=== PATIENT | female | born 1980 | race Caucasian/White ===

== ENCOUNTER 2019-09-26 16:34 | Emergency (ER) | payer MEDICAID ==
[2019-09-26 16:43] VITALS: BP 145/84
--- NOTE | 2019-09-26 17:09 | ER Document Report ---
ED General - General Chief Complaint: Ear Pain Stated Complaint: EAR PAIN Notes: Patient is a 38-year-old white female with a past medical history of diabetes who presents to the emergency department with a chief complaint of left ear pain. She states that she has had problems with her ears in the past. Has had to see ENT. She states she thinks she has another ear infection. She also admits that she has some soreness in the back of the top of the roof of the mo ut and back of the throat with any eating and drinking as well as white patches on the tongue. She states she has not noticed any other patches in the mouth but she has not been looking. She is edentulous by history. She does smoke. She supposed to use oral inhaled medications but reports that she does not. She denies any difficulty breathing, tongue or throat swelling. No drainage from the ears or hearing loss. No fever or headache. - Related Data Allergies/Adverse Reactions: clindamycin Allergy (Verified 09/26/19 16:56) doxycycline Allergy (Verified 09/26/19 16:56) Penicillins Allergy (Verified 09/26/19 16:56) Home Medications: glipizide, pioglitazone, phenergan Past Medical History - Social History Smoking Status: Current Every Day Smoker Frequency of alcohol use: None Drug Abuse: None Family History: Reviewed & Not Pertinent Patient has suicidal ideation: No Patient has homicidal ideation: No Endocrine Medical History: Reports: Hx Diabetes Mellitus Type 2 Past Surgical History: Reports: Hx Tonsillectomy, Hx Tubal Ligation Review of Systems - Review of Systems EENT: Ear pain, Throat pain, Mouth pain -: Yes All other systems reviewed and negative Physical Exam - Vital signs Vitals: Temp Pulse Resp BP Pulse Ox 98.6 F 108 H 16 145/84 H 97 09/26/19 16:38 09/26/19 16:38 09/26/19 16:38 09/26/19 16:38 09/26/19 16:38 - General General appearance: Appears well, Alert - HEENT Head: Normocephalic, Atraumatic Eyes: Normal Conjunctiva: Normal Extraocular movements intact: Yes Ears: Normal External canal: Normal Tympanic membrane: Normal Nasal: Normal Mouth/Lips: Normal Mucous membranes: Moist Pharynx: Other - White plaques to the soft palate, posterior pharynx and tongue consistent with oral pharyngeal candidiasis Neck: Normal - Respiratory Respiratory status: No respiratory distress Chest status: Nontender Breath sounds: Normal Chest palpation: Normal - Cardiovascular Rhythm: Regular Heart sounds: Normal auscultation - Neurological Neuro grossly intact: Yes Cognition: Normal Orientation: AAOx4 [place] Coma Scale Eye Opening: Spontaneous [place] Coma Scale Verbal: Oriented [place] Coma Scale Motor: Obeys Commands Jefry Coma Scale Total: 15 Speech: Normal - Psychological Associated symptoms: Normal affect, Normal mood - Skin Skin Temperature: Warm Skin Moisture: Dry Skin Color: Normal Course - Re-evaluation Re-evalutation: 09/26/19 17:09 Suspect referred pain to the left ear given the thrush. Should be treated with nystatin. Counseled her regarding the importance of outpatient follow-up and advised that she return here or any ER immediately with any new, persistent or worsening symptoms. She verbalized understood and agreed. - Vital Signs Vital signs: Temp Pulse Resp BP Pulse Ox 98.6 F 108 H 16 145/84 H 97 09/26/19 16:38 09/26/19 16:38 09/26/19 16:38 09/26/19 16:38 09/26/19 16:38 Discharge - Discharge Clinical Impression: Thrush Condition: Stable Disposition: HOME, SELF-CARE Instructions: Oral Thrush ([facility]) Additional Instructions: Follow-up with your regular doctor in 2 to 3 days for reevaluation. Return here or any ER immediately with any new, persistent or worsening symptoms. Prescriptions: Nystatin [Mycostatin 500,000 Unit/5 ml Susp Udcup] 500,000 unit PO QID #20 [facility] [place]
== END 2019-09-26 17:21 | disposition home or self-care (01) ==
LOC: ER 16:34
DX: B37.9 Candidiasis, unspecified (principal); H92.02 Otalgia, left ear; R07.0 Pain in throat; E11.9 Type 2 diabetes mellitus without complications; F17.200 Nicotine dependence, unspecified, uncomplicated; Z79.84 Long term (current) use of oral hypoglycemic drugs; Z79.899 Other long term (current) drug therapy; Z88.1 Allergy status to other antibiotic agents; Z88.0 Allergy status to penicillin
CPT/HCPCS: 99282

== ENCOUNTER 2019-11-19 07:32 | Inpatient (IN) | payer MEDICAID ==
[2019-11-19] MEDS ORDERED: IPRATROPIUM/ALBUTEROL 0.5-2.5 MG/3 ML AMPUL NEB ONE (08:17)
[2019-11-19] MEDS ORDERED: NORMAL SALINE 1000 ML 1,000 ML IV ONE ×2 (08:17→10:37)
[2019-11-19 08:45] LABS: HEMATOCRIT 33.5 % (36.0-47.0); HEMOGLOBIN 11.8 g/dL (12.0-15.5); MEAN CORPUSCULAR HEMOGLOBIN 29.5 pg (27.0-33.4); MEAN CORPUSCULAR HGB CONC 35.3 g/dL (32.0-36.0); MEAN CORPUSCULAR VOLUME 83 fl (80-97); RED BLOOD COUNT 4.02 10^6/uL (3.72-5.28); RED CELL DISTRIBUTION WIDTH 14.4 % (11.5-14.0)
[2019-11-19 08:52] LABS: ALBUMIN 3.3 g/dL (3.5-5.0); ALKALINE PHOSPHATASE 155 U/L (38-126); ANION GAP 10 (5-19); ASPARTATE AMINO TRANSFERASE 153 U/L (14-36); BILIRUBIN,DIRECT 0.7 mg/dL (0.0-0.4); BILIRUBIN,TOTAL 1.5 mg/dL (0.2-1.3); BLOOD UREA NITROGEN 11 mg/dL (7-20); CALCIUM 7.9 mg/dL (8.4-10.2); CARBON DIOXIDE 30 mmol/L (22-30); CHLORIDE 85 mmol/L (98-107); CREATINE KINASE 102 U/L (30-135); GLUCOSE 160 mg/dL (75-110); TOTAL PROTEIN 6.9 g/dL (6.3-8.2)
[2019-11-19 08:53] LABS: POTASSIUM 3.1 mmol/L (3.6-5.0)
[2019-11-19] MEDS ORDERED: RINGERS SOLUTION,LACTATED 1,000 ML IV ONE (09:02)
--- NOTE | 2019-11-19 09:06 | ER Document Report ---
Entered by JOHN RHOADES SCRIBE 11/19/19 0800 Acting as scribe for:AUSTIN MORALES MD ED General - General Chief Complaint: Vomiting Stated Complaint: NAUSEA/VOMITING Primary Care Provider: ROSENDO WEINER PA-C [Primary Care Provider] - Follow up as needed Mode of Arrival: Ambulatory Information source: Patient Notes: This 38-year-old female patient presents to the emergency department today with complaints of vomiting for one week with associated shortness of breath for the last few days. Patient was seen here on 09/25 and was diagnosed with thrush which she states has intermittently been an issue since that visit. Patient has seen Rosendo Weiner for the thrush but has not yet seen her for any of her new symptoms. Patient reports feeling short of breath for the last few days without a cough. Patient reports substernal chest discomfort which she attributes to her shortness of breath. Patient states that she has had intermittent fevers. - Related Data Allergies/Adverse Reactions: clindamycin Allergy (Verified 11/19/19 08:58) doxycycline Allergy (Verified 11/19/19 08:58) Penicillins Allergy (Verified 11/19/19 08:58) Past Medical History - General Information source: Patient - Social History Smoking Status: Current Every Day Smoker Cigarette use (# per day): Yes - 1 ppd Frequency of alcohol use: Rare Drug Abuse: None Occupation: unemployed Family History: Reviewed & Not Pertinent Patient has homicidal ideation: No Endocrine Medical History: Reports: Hx Diabetes Mellitus Type 2 Past Surgical History: Reports: Hx Tonsillectomy, Hx Tubal Ligation Review of Systems - Review of Systems Constitutional: See HPI, Fever EENT: No symptoms reported Cardiovascular: See HPI, Chest pain Respiratory: See HPI, Short of breath. denies: Cough Gastrointestinal: See HPI, Vomiting. denies: Diarrhea Genitourinary: No symptoms reported Female Genitourinary: No symptoms reported Musculoskeletal: No symptoms reported Skin: No symptoms reported Hematologic/Lymphatic: No symptoms reported Neurological/Psychological: No symptoms reported -: Yes All other systems reviewed and negative Physical Exam - Vital signs Vitals: Temp 99.8 F 11/19/19 07:33 - Notes Notes: Physical Exam: General: Alert, appears significantly older than stated age. HEENT: Normocephalic. Atraumatic. PERRL. Extraocular movements intact. O ropharynx clear. Neck: Supple. Non-tender. Respiratory: Mild respiratory distress. Diffuse wheezing and rhonchi bilaterally. Cardiovascular: Tachycardic, regular rhythm. Abdominal: Normal Inspection. Non-tender. No distension. Normal Bowel Sounds. Back: No gross abnormalities. Extremities: Moves all four extremities. Upper extremities: Normal inspection. Normal ROM. Lower extremities: Normal inspection. No edema. Normal ROM. Neurological: Normal cognition. AAOx4. Normal speech. Psychological: Normal affect. Normal Mood. Skin: Warm. Dry. Normal color. Course - Re-evaluation Re-evalutation: 11/19/19 10:41 Patient has neutropenic fever. CBC suggests this may be a viral illness affecting her bone marrow due to the low platelet count. The patient is allergic to clindamycin, doxycycline, and penicillins. She states penicillin causes her to develop a rash. She states she has taken Keflex in the past for ear infections and has had no problems with Keflex. She does not knows she is ever had Rocephin. - Vital Signs Vital signs: Temp Pulse Resp BP Pulse Ox 101.6 F H 162 H 22 H 94/69 L 96 11/19/19 08:44 11/19/19 07:42 11/19/19 10:15 11/19/19 10:15 11/19/19 10:15 - Laboratory Result Diagrams: 11/19/19 08:08 11/19/19 08:08 Laboratory results interpreted by me: 11/19/19 11/19/19 11/19/19 08:08 08:08 09:35 WBC 1.5 L* Hgb 11.8 L Hct 33.5 L RDW 14.4 H Plt Count 51 L Band Neutrophils % 8 H Lymphocytes % (Manual) 6 L Monocytes % (Manual) 18 H Abs Neuts (Manual) 1.1 L Abs Lymphs (Manual) 0.1 L Sodium 124.7 L Potassium 3.1 L Chloride 85 L Creatinine 0.44 L Glucose 160 H Calcium 7.9 L Total Bilirubin 1.5 H Direct Bilirubin 0.7 H AST 153 H Alkaline Phosphatase 155 H Albumin 3.3 L Urine Protein 100 H Urine Glucose (UA) 50 H Urine Ketones 25 H Urine Blood SMALL H Urine Bilirubin MODERATE H Urine Urobilinogen 12.0 H Ur Leukocyte Esterase TRACE H - Diagnostic Test Radiology reviewed: Image reviewed, Reports reviewed - Chest x-ray does not show acute cardiopulmonary process - EKG Interpretation by Me EKG shows normal: Sinus rhythm, [place], Intervals, QRS Complexes, ST-T Waves Rate: Tachycardia - 139 - Consults Dr. Schrader Time consulted: 10:55 Consulted provider: will come to ER Critical Care Note - Critical Care Note Total time excluding time spent on procedures (mins): 45 Discharge - Discharge Clinical Impression: Febrile neutropenia, Hyponatremia, Hypokalemia, Hypocalcemia, Bronchitis with bronchospasm, Thrombocytopenia, Tobacco abuse Nausea and vomiting Qualifiers: Vomiting type: unspecified Vomiting Intractability: non-intractable Qualified Code(s): R11.2 - Nausea with vomiting, unspecified Fever Qualifiers: Fever type: unspecified Qualified Code(s): R50.9 - Fever, unspecified Condition: Fair Disposition: ADMITTED INPATIENT Admitting Provider: Raciel (Hospitalist) Unit Admitted: [facility]U Referrals: ROSENDO WEINER PA-C [Primary Care Provider] - Follow up as needed I personally performed the services described in the documentation, reviewed and edited the documentation which was dictated to the scribe in my presence, and it accurately records my words and actions.
[2019-11-19 09:09] LABS: PLATELET COUNT 51 10^3/uL (150-450); WHITE BLOOD COUNT 1.5 10^3/uL (4.0-10.5)
[2019-11-19 09:12] LABS: ABSOLUTE LYMPHOCYTES# (MANUAL) 0.1 10^3/uL (0.5-4.7); ABSOLUTE MONOCYTES # (MANUAL) 0.3 10^3/uL (0.1-1.4); BAND NEUTROPHILS % (MANUAL) 8 % (3-5); BASOPHILS % (MANUAL) 0 % (0-2); EOSINOPHILS % (MANUAL) 0 % (0-6); LYMPHOCYTES % (MANUAL) 6 % (13-45); MONOCYTES % (MANUAL) 18 % (3-13); SEGMENTED NEUTROPHILS % (MAN) 68 % (42-78); TOTAL CELLS COUNTED 50
[2019-11-19 09:13] LABS: ANISOCYTOSIS SLIGHT; OVALOCYTES SLIGHT; PLATELET COMMENT DECREASED
[2019-11-19] MEDS ORDERED: ONDANSETRON HCL INJ/PF 4 MG/2 ML SDV IV ONE (09:28)
--- NOTE | 2019-11-19 09:35 | RADIOLOGY REPORT (SQ) ---
EXAM DESCRIPTION: CHEST SINGLE VIEW IMAGES COMPLETED DATE/TIME: 11/19/2019 8:44 am REASON FOR STUDY: Fever, short of breath, nausea vomiting COMPARISON: None. EXAM PARAMETERS: NUMBER OF VIEWS: One view. TECHNIQUE: Single frontal radiographic view of the chest acquired. RADIATION DOSE: NA LIMITATIONS: None. FINDINGS: LUNGS AND PLEURA: No opacities, masses or pneumothorax. No pleural effusion. MEDIASTINUM AND HILAR STRUCTURES: No masses. Contour normal. HEART AND VASCULAR STRUCTURES: Heart normal in size. Normal vasculature. BONES: No acute findings. HARDWARE: None in the chest. OTHER: No other significant finding. IMPRESSION: NO ACUTE RADIOGRAPHIC FINDING IN THE CHEST. TECHNICAL DOCUMENTATION: JOB ID: [id number] 2010 [employer]- All Rights Reserved Reading location - IP/workstation name: [email or web address]
[2019-11-19] MEDS ORDERED: ACETAMINOPHEN 325 MG TABLET PO ONE (10:19)
[2019-11-19 10:32] LABS: APPEARANCE,URINE HAZY; COLOR,URINE DARK YELLOW; GLUCOSE, URINE 50 mg/dL (NEGATIVE)
[2019-11-19 10:33] LABS: KETONES,URINE 25 mg/dL (NEGATIVE); PROTEIN,URINE 100 mg/dL (NEGATIVE); URINE SPECIFIC GRAVITY 1.023
[2019-11-19 10:34] LABS: ADD MANUAL MICROSCOPIC YES; BACTERIA,URINE TRACE /HPF; BILIRUBIN,URINE MODERATE (NEGATIVE); LEUKOCYTE ESTERASE,URINE TRACE (NEGATIVE); NITRITE,URINE NEGATIVE (NEGATIVE)
[2019-11-19] MEDS ORDERED: POTASSI CL 20 MEQ/50 ML RIDER 20 MEQ/50 ML RTUPB IV ONE (10:37)
[2019-11-19] MEDS ORDERED: CEFEPIME 1 GM/D5W RTU 1 GM/50 ML RTUPB IV ONE (10:41)
[2019-11-19] MEDS ORDERED: NORMAL SALINE 1000 ML 1,000 ML IV PRN (14:00)
[2019-11-19] MEDS ORDERED: IPRATROPIUM/ALBUTEROL 0.5-2.5 MG/3 ML AMPUL NEB PRN (14:00)
[2019-11-19] MEDS ORDERED: VANCOMYCIN HCL INJ 1000 MG VIAL IV SCH (14:15)
[2019-11-19] MEDS ORDERED: DEXTROSE 40% GEL 15 GM TUBE PO PRN ×2 (14:17)
[2019-11-19] MEDS ORDERED: DEXTROSE 50%-WATER 25 GM/50 ML DISP.SYRIN IV PRN ×2 (14:17)
[2019-11-19] MEDS ORDERED: GLUCAGON,HUMAN RECOMB 1 MG INJ IM PRN (14:17)
--- NOTE | 2019-11-19 14:44 | PDOC H&P ---
History of Present Illness Admission Date/PCP: 11/19/19 11:09 ROSENDO BAJWA PA-C Patient complains of: Fatigue, loss of appetite, vomiting History of Present Illness: ARMIDA COLEMAN is a 38 year old female with history of bipolar disorder, diabetes mellitus type 2, asthma, oral thrush, who presents to the hospital with complaints of vomiting for the past several days as well as significant fatigue and some shortness of breath on occasion. Symptoms have persisted. She denies any significant chest pain or pain elsewhere. She did endorse previously feeling a little chest tightness. She has occasionally noted diaphoresis but was unaware that she was febrile. She denies any headaches, runny nose, dysuria, neck pain or stiffness. She has been initiated on treatment with nystatin for oral thrush recently states that she has had issue with thrush in the past. She denies any history of IV drug use, cirrhosis, HIV and denies being on any immunosuppressive medications. Past Medical History Pulmonary Medical History: Reports: Asthma Endocrine Medical History: Reports: Diabetes Mellitus Type 2 Psychiatric Medical History: Reports: Bipolar Disorder Past Surgical History Past Surgical History: Reports: Tonsillectomy, Tubal Ligation Social History Information Source: Patient Smoking Status: Current Every Day Smoker Frequency of Alcohol Use: Rare Hx Recreational Drug Use: No - She denies any history of drug use including IV drugs - Advance Directive Resuscitation Status: Full Code Family History Family History: Other - Patient states none Parental Family History Reviewed: Yes Children Family History Reviewed: Unknown Sibling(s) Family History Reviewed.: Unknown Medication/Allergy Home Medications: Glipizide [Glocotrol 5 Mg Tablet] 5 mg PO BID 11/19/19 Meclizine HCl [Motion Relief] 25 mg PO BIDP PRN 11/19/19 Nystatin [Mycostatin 145206 Unit/1 ml Susp 60 ml Btl] 3 ml PO QID 11/19/19 Omeprazole 40 mg PO DAILY 11/19/19 Pioglitazone HCl 45 mg PO DAILY 11/19/19 Allergies/Adverse Reactions: clindamycin Allergy (Verified 11/19/19 08:58) doxycycline Allergy (Verified 11/19/19 08:58) Penicillins Allergy (Verified 11/19/19 08:58) Review of Systems Constitutional: PRESENT: chills, fatigue Eyes: ABSENT: visual disturbances Nose, Mouth, and Throat: ABSENT: headache(s), sore throat Cardiovascular: ABSENT: edema Respiratory: PRESENT: cough, dyspnea Gastrointestinal: PRESENT: nausea, vomiting. ABSENT: abdominal pain, diarrhea Genitourinary: ABSENT: difficulty urinating, dysuria Musculoskeletal: ABSENT: back pain Integumentary: PRESENT: diaphoresis, lesions - Bottom sore Neurological: PRESENT: dizziness - Occasionally. ABSENT: confusion Psychiatric: PRESENT: other - Bipolar Endocrine: ABSENT: polyuria Physical Exam Vital Signs: Temp Pulse Resp BP Pulse Ox 99.4 F 162 H 26 H 104/66 94 11/19/19 11:35 11/19/19 07:42 11/19/19 13:01 11/19/19 13:01 11/19/19 13:01 Intake & Output 11/18/19 11/19/19 11/20/19 06:59 06:59 06:59 Intake Total 2100 Balance 2100 Weight 71.214 kg General appearance: PRESENT: no acute distress, cooperative Mouth exam: PRESENT: other - Oral thrush Neck exam: ABSENT: JVD Respiratory exam: PRESENT: clear to auscultation stas, unlabored. ABSENT: wheezes Cardiovascular exam: PRESENT: +S1, +S2, tachycardia. ABSENT: irregular rhythm GI/Abdominal exam: PRESENT: soft, tenderness - Mild generalized. ABSENT: firm, guarding, rebound, rigid Extremities exam: ABSENT: pedal edema Neurological exam: PRESENT: alert, awake, oriented to person, oriented to place, oriented to time, oriented to situation Psychiatric exam: PRESENT: unusual affect - Very slow and sluggish with her responses. ABSENT: agitated, anxious Focused psych exam: ABSENT: pressured speech Results Laboratory Results: 11/19/19 08:08 11/19/19 08:08 11/19/19 11/19/19 11/19/19 08:08 08:08 08:08 WBC 1.5 L* RBC 4.02 Hgb 11.8 L Hct 33.5 L MCV 83 MCH 29.5 MCHC 35.3 RDW 14.4 H Plt Count 51 L Seg Neutrophils % Not Reportable Sodium 124.7 L Potassium 3.1 L Chloride 85 L Carbon Dioxide 30 Anion Gap 10 BUN 11 Creatinine 0.44 L Est GFR ( Amer) > 60 Glucose 160 H Lactic Acid Calcium 7.9 L Magnesium 2.3 Total Bilirubin 1.5 H AST 153 H Alkaline Phosphatase 155 H Total Protein 6.9 Albumin 3.3 L Urine Color Urine Appearance Urine pH Ur Specific [place] Urine Protein Urine Glucose (UA) Urine Ketones Urine Blood Urine Nitrite Ur Leukocyte Esterase Ur Squamous Epith Cells 11/19/19 11/19/19 09:35 12:55 WBC RBC Hgb Hct MCV MCH MCHC RDW Plt Count Seg Neutrophils % Sodium Potassium Chloride Carbon Dioxide Anion Gap BUN Creatinine Est GFR ( Amer) Glucose Lactic Acid 0.7 Calcium Magnesium Total Bilirubin AST Alkaline Phosphatase Total Protein Albumin Urine Color DARK YELLOW Urine Appearance HAZY Urine pH 6.0 Ur Specific [place] 1.023 Urine Protein 100 H Urine Glucose (UA) 50 H Urine Ketones 25 H Urine Blood SMALL H Urine Nitrite NEGATIVE Ur Leukocyte Esterase TRACE H Ur Squamous Epith Cells FEW 11/19/19 11/19/19 08:08 08:08 Creatine Kinase 102 Troponin I < 0.012 Impressions: Chest X-Ray 11/19/19 08:18 IMPRESSION: NO ACUTE RADIOGRAPHIC FINDING IN THE CHEST. Assessment and Plan - Diagnosis (1) Sepsis Qualifiers: Sepsis type: sepsis due to unspecified organism Sepsis acute organ dysfunction status: without acute organ dysfunction Qualified Code(s): A41.9 - Sepsis, unspecified organism Is this a current diagnosis for this admission?: Yes Plan: Patient with fever, hyperbilirubinemia, thrombocytopenia, neutropenia, bandemia tachycardia. Evaluating possible etiologies of patient's current sepsis. Chest x-ray is negative and urinalysis is negative as well. She does appear to have a viral syndrome but COVID-19 test is negative. We will check HIV, hepatitis panel, blood cultures. Does have oral thrush. No evidence of meningismus. Received adequate fluid resuscitation Started on broad-spectrum antibiotics with vancomycin and cefepime while awaiting blood culture result. (2) Pancytopenia Is this a current diagnosis for this admission?: Yes Plan: Patient denies history of malignancy, HIV or cirrhosis. Patient looks significantly older than her age. We will check iron studies, vitamin B12, reticulocyte count, haptoglobin, LDH, folic acid, HIV, hepatitis viral panel Suspecting this may be due to viral disease causing bone marrow suppression We will consult oncology (3) Nausea and vomiting Qualifiers: Vomiting type: unspecified Vomiting Intractability: non-intractable Qualified Code(s): R11.2 - Nausea with vomiting, unspecified Is this a current diagnosis for this admission?: Yes Plan: Antiemetics, IV fluids (4) Oral thrush Is this a current diagnosis for this admission?: Yes Plan: We will start on Diflucan IV. (5) Hyponatremia Is this a current diagnosis for this admission?: Yes Plan: Check serum and urine osmolarity. Check urine sodium level. Patient looks very dehydrated and likely her hyponatremia secondary to hypovolemia/dehydration. Will give IV fluids and repeat BMP. (6) Hyperbilirubinemia Is this a current diagnosis for this admission?: Yes Plan: Check right upper quadrant ultrasound to evaluate hepatic contour. Monitor CMP. - Time Time Spent with patient: 35 or more minutes
[2019-11-19] MEDS ORDERED: VANCOMYCIN HCL 1,000 MG in DEXTROSE 5%-WATER 250 ML IV SCH (15:00)
[2019-11-19 15:52] LABS: ABSOLUTE RETICS # 0.046 10^6/uL (0.028-0.122); RETICULOCYTE COUNT (AUTO) 1.37 % (0.66-2.85)
[2019-11-19 15:59] LABS: PROTHROMBIN TIME 17.3 SEC (11.4-15.4)
[2019-11-19 16:00] LABS: PARTIAL THROMBOPLASTIN TIME 36.5 SEC (23.5-35.8)
[2019-11-19 16:22] LABS: BLOOD UREA NITROGEN 9 mg/dL (7-20); CALCIUM 7.1 mg/dL (8.4-10.2); CARBON DIOXIDE 32 mmol/L (22-30); CHLORIDE 95 mmol/L (98-107); GLUCOSE 113 mg/dL (75-110); IRON(TIBC) 57.1 ug/dL (37-170)
[2019-11-19] MEDS: INSULIN LISPRO 100 UNIT/ML 3 ML VIAL SUBCUT SCH ×2 (16:24→21:46)
[2019-11-19 16:25] LABS: ANION GAP 3 (5-19)
[2019-11-19 16:26] LABS: POTASSIUM 2.7 mmol/L (3.6-5.0)
[2019-11-19 16:27] LABS: FREE T3 4.13 pg/mL (2.77-5.27); FREE T4 (FREE THYROXINE) 1.77 ng/dL (0.78-2.19)
[2019-11-19 16:41] LABS: THYROID STIMULATING HORMONE 0.97 uIU/mL (0.47-4.68)
[2019-11-19] MEDS: FLUCONAZOLE 200 MG/NS RTU 200 MG/100 ML RTUPB IV SCH (16:41)
[2019-11-19] MEDS ORDERED: POTASSIUM CHLORIDE 10 MEQ TABLET.ER PO ONE (16:55)
[2019-11-19 17:15] LABS: FOLATE 4.55 ng/mL (>2.76)
[2019-11-19] MEDS: PROMETHAZINE HCL INJ 25 MG/1 ML VIAL IV PRN (17:48)
[2019-11-19] MEDS: POTASSI CL 20 MEQ/50 ML RIDER 20 MEQ/50 ML RTUPB IV SCH ×2 (19:07→19:54)
[2019-11-19] MEDS: VANCOMYCIN HCL 1,000 MG in DEXTROSE 5%-WATER 250 ML IV SCH (19:07)
--- NOTE | 2019-11-19 20:51 | EKG REPORT ---
SEVERITY:- OTHERWISE NORMAL ECG - SINUS TACHYCARDIA : Confirmed by: Minal Ramos MD 19-Nov-2019 20:50:28
[2019-11-19] MEDS ORDERED: CEFEPIME 2 GM/D5W RTU 2 GM/50 ML RTUPB IV SCH (22:00)
--- NOTE | 2019-11-19 23:07 | RADIOLOGY REPORT (SQ) ---
EXAM DESCRIPTION: Right upper quadrant abdominal ultrasound CLINICAL HISTORY: 38 years Female; elevated bili, transaminitis. ? Cirrhosis TECHNIQUE: Abdominal ultrasound was performed. COMPARISON: None. FINDINGS: Pancreas: The head and body the pancreas are unremarkable. The tail was not well seen secondary to overlying bowel gas. Liver: The liver measures 18.5 cm in length. Portal vein is patent with hepatopedal flow. Overall the liver is not well seen.. Gallbladder: The gallbladder is small and contains two stones in the fundus. The largest measures 17 mm. The wall is normal measuring 2.3 mm. No pericholecystic fluid. Common bile duct: 5.3 mm. Right kidney: The kidney measures 12.2 x 4.3 x 4.6 cm. Echogenicity is normal.. No hydronephrosis. Aorta:Visualized portions are within normal limits. IVC: Visualized portions are within normal limits. Ascites: No free fluid. IMPRESSION: 1. Cholelithiasis. 2. The liver is enlarged and difficult to image suggesting fatty infiltration. Portal vein is patent with hepatopedal flow. No ultrasound evidence of cirrhosis.
[2019-11-20] MEDS ORDERED: CEFEPIME 2 GM/D5W RTU 2 GM/50 ML RTUPB IV ONE (00:03)
[2019-11-20] MEDS: ACETAMINOPHEN 325 MG TABLET PO PRN ×2 (00:18→18:16)
[2019-11-20] MEDS: POTASSI CL 20 MEQ/50 ML RIDER 20 MEQ/50 ML RTUPB IV SCH (00:49)
[2019-11-20] MEDS: PROMETHAZINE HCL INJ 25 MG/1 ML VIAL IV PRN ×4 (00:59→18:16)
[2019-11-20] MEDS: VANCOMYCIN HCL 1,000 MG in DEXTROSE 5%-WATER 250 ML IV SCH ×3 (03:09→18:06)
[2019-11-20 06:57] LABS: HEMATOCRIT 30.7 % (36.0-47.0); HEMOGLOBIN 10.6 g/dL (12.0-15.5); MEAN CORPUSCULAR HEMOGLOBIN 29.3 pg (27.0-33.4); MEAN CORPUSCULAR HGB CONC 34.6 g/dL (32.0-36.0); MEAN CORPUSCULAR VOLUME 85 fl (80-97); RED BLOOD COUNT 3.63 10^6/uL (3.72-5.28); RED CELL DISTRIBUTION WIDTH 14.3 % (11.5-14.0)
[2019-11-20 06:59] LABS: PLATELET COUNT 34 10^3/uL (150-450)
[2019-11-20 07:00] LABS: WHITE BLOOD COUNT 1.4 10^3/uL (4.0-10.5)
[2019-11-20 07:03] LABS: ALBUMIN 2.7 g/dL (3.5-5.0); ALKALINE PHOSPHATASE 142 U/L (38-126); ASPARTATE AMINO TRANSFERASE 140 U/L (14-36); BILIRUBIN,DIRECT 0.6 mg/dL (0.0-0.4); BLOOD UREA NITROGEN 6 mg/dL (7-20); CALCIUM 7.3 mg/dL (8.4-10.2); CHLORIDE 97 mmol/L (98-107); GLUCOSE 124 mg/dL (75-110); PHOSPHORUS 2.4 mg/dL (2.5-4.5)
[2019-11-20 07:07] LABS: CARBON DIOXIDE 30 mmol/L (22-30)
[2019-11-20 07:09] LABS: ANION GAP 3 (5-19); POTASSIUM 4.1 mmol/L (3.6-5.0)
[2019-11-20 07:27] LABS: ABSOLUTE LYMPHOCYTES# (MANUAL) 0.1 10^3/uL (0.5-4.7); ABSOLUTE MONOCYTES # (MANUAL) 0.1 10^3/uL (0.1-1.4); BAND NEUTROPHILS % (MANUAL) 8 % (3-5); BASOPHILS % (MANUAL) 0 % (0-2); EOSINOPHILS % (MANUAL) 0 % (0-6); LYMPHOCYTES % (MANUAL) 8 % (13-45); MONOCYTES % (MANUAL) 4 % (3-13); SEGMENTED NEUTROPHILS % (MAN) 78 % (42-78); TOTAL CELLS COUNTED 50
[2019-11-20 07:28] LABS: ANISOCYTOSIS SLIGHT; TOXIC VACUOLATION PRESENT
[2019-11-20 07:34] LABS: OVALOCYTES 1+; PLATELET COMMENT DECREASED
[2019-11-20 07:37] LABS: PROMYELOCYTES % (MANUAL) 2 % (0)
[2019-11-20] MEDS: NORMAL SALINE 1000 ML 1,000 ML IV PRN (08:06)
--- NOTE | 2019-11-20 08:25 | PDOC CONSULTATION ---
Consultation Consult Date: 11/20/19 Provider Consulted: ANTHONY VERDUZCO Consult reason:: Hematology/Oncology consultation was requestd for patient with pancytopenia. History of Present Illness Admission Date/PCP: 11/19/19 11:09 ROSENDO BAJWA PA-C History of Present Illness: ARMIDA COLEMAN is a 38 year old female who is followed by Rosendo Bajwa. She states that "a couple of weeks ago" she developed nausea which has progressed over the past few weeks. She has not been able to eat or drink and has a bdominal pain with the nausea. She has some vertigo and is now so weak, that she can no longer ambulate to the bathroom. She fell recently as well. She denies any fevers, infections, but she states that she has a history of anemia and has been taking iron supplements for this. In the ED, she was found to have significant thrush, pancytopenia, and evidence of sepsis. She has been started on broad spectrum antibiotics and Hepatits and HIV screening has been requested. She was started on IV diflucan. Today, she states that she is still weak and nauseated. Past Medical History Pulmonary Medical History: Reports: Asthma Endocrine Medical History: Reports: Diabetes Mellitus Type 2 Psychiatric Medical History: Reports: Bipolar Disorder, Depression Past Surgical History Past Surgical History: Reports: Tonsillectomy, Tubal Ligation Social History Information Source: Patient Occupation: She is unemployed. Smoking Status: Current Every Day Smoker Frequency of Alcohol Use: None Hx Recreational Drug Use: No - She denies any history of drug use including IV drugs Past Social History Note: She is with 2 kids. She cares for her grandmother. She has been smoking a pack a day since age 13. She denies any alcohol. - Advance Directive Resuscitation Status: Full Code Family History Family History: Other - Patient states none Family History: MGM with stomach cancer Parental Family History Reviewed: Yes - Mother and father both alive and healthy Children Family History Reviewed: Yes Sibling(s) Family History Reviewed.: Yes - 1 brother healthy Medication/Allergy Home Medications: Glipizide [Glocotrol 5 Mg Tablet] 5 mg PO BID 11/19/19 Meclizine HCl [Motion Relief] 25 mg PO BIDP PRN 11/19/19 Nystatin [Mycostatin 200880 Unit/1 ml Susp 60 ml Btl] 3 ml PO QID 11/19/19 Omeprazole 40 mg PO DAILY 11/19/19 Pioglitazone HCl 45 mg PO DAILY 11/19/19 Allergies/Adverse Reactions: clindamycin Allergy (Verified 11/19/19 08:58) doxycycline Allergy (Verified 11/19/19 08:58) Penicillins Allergy (Verified 11/19/19 08:58) Review of Systems Constitutional: PRESENT: fatigue, weakness. ABSENT: chills Eyes: ABSENT: visual disturbances Ears: ABSENT: hearing changes Nose, Mouth, and Throat: ABSENT: sore throat Cardiovascular: ABSENT: chest pain Respiratory: ABSENT: cough Gastrointestinal: PRESENT: abdominal pain, nausea Genitourinary: ABSENT: dysuria Musculoskeletal: PRESENT: other - pain in her side after falling. Integumentary: ABSENT: rash Neurological: PRESENT: weakness Psychiatric: PRESENT: anxiety, depression Hematologic/Lymphatic: ABSENT: easy bleeding Physical Exam Vital Signs: Temp Pulse Resp BP Pulse Ox 98.0 F 120 H 22 H 123/89 H 100 11/20/19 03:07 11/20/19 07:00 11/20/19 03:07 11/20/19 03:07 11/20/19 03:07 Intake & Output 11/19/19 11/20/19 11/21/19 06:59 06:59 06:59 Intake Total 4219 Output Total 200 Balance 4019 Weight 66.1 kg General appearance: PRESENT: no acute distress, well-developed, well-nourished Exam: 38 year old female. Head exam: PRESENT: atraumatic, normocephalic Eye exam: PRESENT: EOMI Mouth exam: PRESENT: other - Marked thrush over tongue. Neck exam: ABSENT: lymphadenopathy, tenderness Respiratory exam: PRESENT: clear to auscultation stas, unlabored Cardiovascular exam: PRESENT: RRR GI/Abdominal exam: PRESENT: soft, tenderness - RUQ. Extremities exam: ABSENT: pedal edema Musculoskeletal exam: PRESENT: normal inspection Neurological exam: PRESENT: alert, awake, oriented to person, oriented to place Psychiatric exam: PRESENT: appropriate affect Skin exam: PRESENT: normal color. ABSENT: rash Results Laboratory Results: 11/20/19 06:18 11/20/19 06:18 11/19/19 11/19/19 11/19/19 08:08 08:08 08:08 WBC 1.5 L* RBC 4.02 Hgb 11.8 L Hct 33.5 L MCV 83 MCH 29.5 MCHC 35.3 RDW 14.4 H Plt Count 51 L Seg Neutrophils % Not Reportable Retic Count (auto) Sodium 124.7 L Potassium 3.1 L Chloride 85 L Carbon Dioxide 30 Anion Gap 10 BUN 11 Creatinine 0.44 L Est GFR ( Amer) > 60 Glucose 160 H Serum Osmolality Lactic Acid Calcium 7.9 L Phosphorus Magnesium 2.3 Iron TIBC % Saturation Transferrin Ferritin Total Bilirubin 1.5 H AST 153 H Alkaline Phosphatase 155 H Total Protein 6.9 Albumin 3.3 L Vitamin B12 Folate TSH Free T4 Free T3 pg/mL Urine Color Urine Appearance Urine pH Ur Specific [place] Urine Protein Urine Glucose (UA) Urine Ketones Urine Blood Urine Nitrite Ur Leukocyte Esterase Ur Squamous Epith Cells Urine Osmolality 11/19/19 11/19/19 11/19/19 09:35 12:55 15:34 WBC RBC Hgb Hct MCV MCH MCHC RDW Plt Count Seg Neutrophils % Retic Count (auto) Sodium Potassium Chloride Carbon Dioxide Anion Gap BUN Creatinine Est GFR ( Amer) Glucose Serum Osmolality Lactic Acid 0.7 0.8 Calcium Phosphorus Magnesium Iron TIBC % Saturation Transferrin Ferritin Total Bilirubin AST Alkaline Phosphatase Total Protein Albumin Vitamin B12 Folate TSH Free T4 Free T3 pg/mL Urine Color DARK YELLOW Urine Appearance HAZY Urine pH 6.0 Ur Specific [place] 1.023 Urine Protein 100 H Urine Glucose (UA) 50 H Urine Ketones 25 H Urine Blood SMALL H Urine Nitrite NEGATIVE Ur Leukocyte Esterase TRACE H Ur Squamous Epith Cells FEW Urine Osmolality 11/19/19 11/19/19 11/19/19 15:34 15:34 15:34 WBC RBC Hgb Hct MCV MCH MCHC RDW Plt Count Seg Neutrophils % Retic Count (auto) 1.37 Sodium 129.7 L Potassium 2.7 L* Chloride 95 L Carbon Dioxide 32 H Anion Gap 3 L BUN 9 Creatinine 0.44 L Est GFR ( Amer) > 60 Glucose 113 H Serum Osmolality Lactic Acid Calcium 7.1 L Phosphorus Magnesium Iron 57.1 TIBC 183 L % Saturation 31 Transferrin Ferritin Cancelled Total Bilirubin AST Alkaline Phosphatase Total Protein Albumin Vitamin B12 384.0 Folate 4.55 TSH 0.97 Free T4 1.77 Free T3 pg/mL 4.13 Urine Color Urine Appearance Urine pH Ur Specific [place] Urine Protein Urine Glucose (UA) Urine Ketones Urine Blood Urine Nitrite Ur Leukocyte Esterase Ur Squamous Epith Cells Urine Osmolality 11/19/19 11/19/19 11/19/19 15:34 18:39 19:34 WBC RBC Hgb Hct MCV MCH MCHC RDW Plt Count Seg Neutrophils % Retic Count (auto) Sodium Potassium Chloride Carbon Dioxide Anion Gap BUN Creatinine Est GFR ( Amer) Glucose Serum Osmolality 269 L Lactic Acid 1.6 Calcium Phosphorus Magnesium Iron TIBC % Saturation Transferrin 108.10 L Ferritin Total Bilirubin AST Alkaline Phosphatase Total Protein Albumin Vitamin B12 Folate TSH Free T4 Free T3 pg/mL Urine Color Urine Appearance Urine pH Ur Specific [place] Urine Protein Urine Glucose (UA) Urine Ketones Urine Blood Urine Nitrite Ur Leukocyte Esterase Ur Squamous Epith Cells Urine Osmolality 11/19/19 11/20/19 11/20/19 19:34 03:00 06:18 WBC 1.4 L* RBC 3.63 L Hgb 10.6 L Hct 30.7 L MCV 85 MCH 29.3 MCHC 34.6 RDW 14.3 H Plt Count 34 L Seg Neutrophils % Not Reportable Retic Count (auto) Sodium Potassium Chloride Carbon Dioxide Anion Gap BUN Creatinine Est GFR ( Amer) Glucose Serum Osmolality Lactic Acid Calcium Phosphorus Magnesium Iron TIBC % Saturation Transferrin Ferritin > 24124.00 H Total Bilirubin AST Alkaline Phosphatase Total Protein Albumin Vitamin B12 Folate TSH Free T4 Free T3 pg/mL Urine Color Urine Appearance Urine pH Ur Specific [place] Urine Protein Urine Glucose (UA) Urine Ketones Urine Blood Urine Nitrite Ur Leukocyte Esterase Ur Squamous Epith Cells Urine Osmolality 404 11/20/19 06:18 WBC RBC Hgb Hct MCV MCH MCHC RDW Plt Count Seg Neutrophils % Retic Count (auto) Sodium 130.3 L Potassium 4.1 D Chloride 97 L Carbon Dioxide 30 Anion Gap 3 L BUN 6 L Creatinine 0.42 L Est GFR ( Amer) > 60 Glucose 124 H Serum Osmolality Lactic Acid Calcium 7.3 L Phosphorus 2.4 L Magnesium 2.1 Iron TIBC % Saturation Transferrin Ferritin Total Bilirubin 1.0 AST 140 H Alkaline Phosphatase 142 H Total Protein 6.0 L Albumin 2.7 L Vitamin B12 Folate TSH Free T4 Free T3 pg/mL Urine Color Urine Appearance Urine pH Ur Specific [place] Urine Protein Urine Glucose (UA) Urine Ketones Urine Blood Urine Nitrite Ur Leukocyte Esterase Ur Squamous Epith Cells Urine Osmolality 11/19/19 11/19/19 08:08 08:08 Creatine Kinase 102 Troponin I < 0.012 I examined her peripheral blood smear in the lab. Her WBC appear decreased, but normal with no obvious Blasts, or immature forms. RBCs are normocytic, but with mild anisocytosis and poikilocytosis. Few Schistocytes seen. Platelets are decreased with a few large forms seen. Otherwise normal. This is most likely a chronic infectious picture. Impressions: Abdomen Ultrasound 11/19/19 00:00 IMPRESSION: 1. Cholelithiasis. 2. The liver is enlarged and difficult to image suggesting fatty infiltration. Portal vein is patent with hepatopedal flow. No ultrasound evidence of cirrhosis. Chest X-Ray 11/19/19 08:18 IMPRESSION: NO ACUTE RADIOGRAPHIC FINDING IN THE CHEST. Assessment & Plan - Diagnosis (1) Oral thrush Is this a current diagnosis for this admission?: Yes Plan: She has been started on IV Diflucan 100 mg daily. This should continue until a few days after her Thrush is gone. This may take >7 days. (2) Pancytopenia Is this a current diagnosis for this admission?: Yes Plan: Her ferritin is >10,000. B12 and Folate were normal. All signs and symptoms point to hepatitis or HIV as primary cause. I will await these results but if negative, then bone marrow biopsy should be performed. TSH was normal. LDH mild ly increased, but no evidence of TTP on blood smear. I will follow with you. I would transfuse pRBCs for HGB <8 and PLT for PLT < 10. She should be on neutropenic precautions.
[2019-11-20 08:44] LABS: CHOLESTEROL 84.95 mg/dL (0-200); TRIGLYCERIDES 135 mg/dL (<150)
[2019-11-20 08:54] LABS: DIRECT LDL 42 mg/dL (<100)
[2019-11-20] MEDS: CEFEPIME HCL 2 GM in NORMAL SALINE 50 ML IV SCH ×2 (09:53→21:59)
[2019-11-20] MEDS: CALCIUM CARBONATE 600 MG TABLET PO SCH ×2 (09:54→18:06)
[2019-11-20] MEDS: INSULIN LISPRO 100 UNIT/ML 3 ML VIAL SUBCUT SCH ×4 (09:54→21:52)
--- NOTE | 2019-11-20 11:42 | RADIOLOGY REPORT (SQ) ---
EXAM DESCRIPTION: CT ABD/PELVIS WITH IV ORAL IMAGES COMPLETED DATE/TIME: 11/20/2019 11:29 am REASON FOR STUDY: pancytopenia. occult malignancy? COMPARISON: None. TECHNIQUE: CT scan of the abdomen and pelvis performed using helical scanning technique with dynamic intravenous contrast injection. No oral contrast. Images reviewed with lung, soft tissue, and bone windows. Reconstructed coronal and sagittal MPR images reviewed. Delayed images for evaluation of the urinary system also acquired. All images stored on PACS. All CT scanners at this facility use dose modulation, iterative reconstruction, and/or weight based d osing when appropriate to reduce radiation dose to as low as reasonably achievable (ALARA). [facility]: Dose Right [facility]: CareDose [facility]: Dose Right [facility]: Teradose 4D [facility]: [employer] CONTRAST TYPE AND DOSE: contrast/concentration: Isovue 350.00 mg/ml; Total Contrast Delivered: 75.0 ml; Total Saline Delivered: 67.0 ml RENAL FUNCTION: BUN 6, creatinine 0.42 RADIATION DOSE: CT Rad equipment meets quality standard of care and radiation dose reduction techniq ues were employed. CTDIvol: 4.9 mGy. DLP: 534 mGy-cm.. LIMITATIONS: None. FINDINGS: LOWER CHEST: Small pericardial effusion and/or pericardial thickening. Lung bases are fito ar. LIVER: Fatty infiltration of liver. No masses. No ductal dilatation. SPLEEN: Normal size. No focal lesions. PANCREAS: No masses. No significant calcifications. No adjacent inflammation or peripancreatic fluid collections. Pancreatic duct not dilated. GALLBLADDER: Questionable gallbladder wall thickening versus pericholecystic edema. No surrounding i nflammation. Review of the gallbladder ultrasound reveals no significant findings other than stones. ADRENAL GLANDS: No significant masses or asymmetry. RIGHT KIDNEY AND URETER: No solid masses. No significant calcifications. No hydronephrosis or hyd roureter. LEFT KIDNEY AND URETER: No solid masses. No significant calcifications. No hydronephrosis or hydr oureter. AORTA AND VESSELS: No aneurysm. No dissection. Renal arteries, SMA, celiac without stenosis. RETROPERITONEUM: No retroperitoneal adenopathy, hemorrhage or masses. BOWEL AND PERITONEAL CAVITY: No masses or inflammatory changes. No free fluid or peritoneal masses. APPENDIX: Normal. PELVIS: There is free fluid the pelvis. Etiology of this is uncertain. ABDOMINAL WALL: No masses. No hernias. BONES: No significant or acute findings. OTHER: No other significant finding. IMPRESSION: Moderate free fluid the pelvis. No other significant findings in the abdomen or pelvis. Free fluid the pelvis is nonspecific. TECHNICAL DOCUMENTATION: JOB ID: [id number] Quality ID # [id number]: Final reports with documentation of one or more dose reduction techniques (e.g., Au tomated exposure control, adjustment of the mA and/or kV according to patient size, use of iterative reconstruction technique) 2010 [email or web address]- All Rights Reserved Reading location - IP/workstation name: [email or web address]
[2019-11-20 12:05] LABS: PATH REVIEW PATHOLOGIST REVIEWED
[2019-11-20 12:06] LABS: PATH REVIEW PATHOLOGIST REVIEWED
[2019-11-20] MEDS ORDERED: NORMAL SALINE 1000 ML 1,000 ML IV ONE (12:45)
[2019-11-20] MEDS ORDERED: PHOSPHORUS #1 250 MG TABLET PO ONE (12:45)
--- NOTE | 2019-11-20 12:49 | PDOC PROGRESS REPORT ---
Subjective Progress Note for:: 11/20/19 Subjective:: Patient's denied any vomiting yesterday. However she states that she still has no appetite and occasionally gets nauseous. She denies any fever or chills or diarrhea. Denies any anthralgias/arthritis or skin lesions. Denies headache. Still has significant fatigue. She denies any history of cirrhosis, malignancy, IV drug use, HIV, hepatitis, rheumatological or autoimmune diseases. Reason For Visit: FEVER, PANCYTOPENIA Physical Exam Vital Signs: Temp Pulse Resp BP Pulse Ox 100.5 F H 138 H 20 120/84 97 11/20/19 08:13 11/20/19 11:58 11/20/19 11:58 11/20/19 08:13 11/20/19 11:58 Intake & Output 11/19/19 11/20/19 11/21/19 06:59 06:59 06:59 Intake Total 4219 Output Total 200 Balance 4019 Weight 66.1 kg General appearance: PRESENT: no acute distress, cooperative, other - appears significantly older than her age.. ABSENT: well-nourished Neck exam: ABSENT: JVD Respiratory exam: PRESENT: clear to auscultation stas, unlabored. ABSENT: tachypnea, wheezes Cardiovascular exam: PRESENT: +S1, +S2, tachycardia. ABSENT: irregular rhythm GI/Abdominal exam: PRESENT: normal bowel sounds, soft, tenderness. ABSENT: rebound, rigid Extremities exam: ABSENT: joint swelling Neurological exam: PRESENT: alert, awake, oriented to person, oriented to place, oriented to time, oriented to situation Skin exam: PRESENT: skin tears - lesion/ulceration on bottom, other - no skin rashes or bumps. ABSENT: jaundice, urticaria Results Laboratory Results: 11/20/19 06:18 11/20/19 06:18 11/19/19 11/19/19 11/19/19 08:08 12:55 15:34 WBC 1.5 L* RBC Hgb Hct MCV MCH MCHC RDW Plt Count Seg Neutrophils % Retic Count (auto) Sodium Potassium Chloride Carbon Dioxide Anion Gap BUN Creatinine Est GFR ( Amer) Glucose Serum Osmolality Lactic Acid 0.7 0.8 Calcium Phosphorus Magnesium Iron TIBC % Saturation Transferrin Ferritin Total Bilirubin AST Alkaline Phosphatase Total Protein Albumin Triglycerides Cholesterol LDL Cholesterol Direct VLDL Cholesterol HDL Cholesterol Vitamin B12 Folate TSH Free T4 Free T3 pg/mL Urine Osmolality 11/19/19 11/19/19 11/19/19 15:34 15:34 15:34 WBC RBC Hgb Hct MCV MCH MCHC RDW Plt Count Seg Neutrophils % Retic Count (auto) 1.37 Sodium 129.7 L Potassium 2.7 L* Chloride 95 L Carbon Dioxide 32 H Anion Gap 3 L BUN 9 Creatinine 0.44 L Est GFR ( Amer) > 60 Glucose 113 H Serum Osmolality Lactic Acid Calcium 7.1 L Phosphorus Magnesium Iron 57.1 TIBC 183 L % Saturation 31 Transferrin Ferritin Cancelled Total Bilirubin AST Alkaline Phosphatase Total Protein Albumin Triglycerides Cholesterol LDL Cholesterol Direct VLDL Cholesterol HDL Cholesterol Vitamin B12 384.0 Folate 4.55 TSH 0.97 Free T4 1.77 Free T3 pg/mL 4.13 Urine Osmolality 11/19/19 11/19/19 11/19/19 15:34 18:39 19:34 WBC RBC Hgb Hct MCV MCH MCHC RDW Plt Count Seg Neutrophils % Retic Count (auto) Sodium Potassium Chloride Carbon Dioxide Anion Gap BUN Creatinine Est GFR ( Amer) Glucose Serum Osmolality 269 L Lactic Acid 1.6 Calcium Phosphorus Magnesium Iron TIBC % Saturation Transferrin 108.10 L Ferritin Total Bilirubin AST Alkaline Phosphatase Total Protein Albumin Triglycerides Cholesterol LDL Cholesterol Direct VLDL Cholesterol HDL Cholesterol Vitamin B12 Folate TSH Free T4 Free T3 pg/mL Urine Osmolality 11/19/19 11/20/19 11/20/19 19:34 03:00 06:18 WBC 1.4 L* RBC 3.63 L Hgb 10.6 L Hct 30.7 L MCV 85 MCH 29.3 MCHC 34.6 RDW 14.3 H Plt Count 34 L Seg Neutrophils % Not Reportable Retic Count (auto) Sodium Potassium Chloride Carbon Dioxide Anion Gap BUN Creatinine Est GFR ( Amer) Glucose Serum Osmolality Lactic Acid Calcium Phosphorus Magnesium Iron TIBC % Saturation Transferrin Ferritin > 49114.00 H Total Bilirubin AST Alkaline Phosphatase Total Protein Albumin Triglycerides Cholesterol LDL Cholesterol Direct VLDL Cholesterol HDL Cholesterol Vitamin B12 Folate TSH Free T4 Free T3 pg/mL Urine Osmolality 404 11/20/19 11/20/19 06:18 06:18 WBC RBC Hgb Hct MCV MCH MCHC RDW Plt Count Seg Neutrophils % Retic Count (auto) Sodium 130.3 L Potassium 4.1 D Chloride 97 L Carbon Dioxide 30 Anion Gap 3 L BUN 6 L Creatinine 0.42 L Est GFR ( Amer) > 60 Glucose 124 H Serum Osmolality Lactic Acid Calcium 7.3 L Phosphorus 2.4 L Magnesium 2.1 Iron TIBC % Saturation Transferrin Ferritin Total Bilirubin 1.0 AST 140 H Alkaline Phosphatase 142 H Total Protein 6.0 L Albumin 2.7 L Triglycerides 135 Cholesterol 84.95 LDL Cholesterol Direct 42 VLDL Cholesterol 27.0 HDL Cholesterol 22 L Vitamin B12 Folate TSH Free T4 Free T3 pg/mL Urine Osmolality 11/19/19 11/19/19 08:08 08:08 Creatine Kinase 102 Troponin I < 0.012 Impressions: Abdomen Ultrasound 11/19/19 00:00 IMPRESSION: 1. Cholelithiasis. 2. The liver is enlarged and difficult to image suggesting fatty infiltration. Portal vein is patent with hepatopedal flow. No ultrasound evidence of cirrhosis. Chest X-Ray 11/19/19 08:18 IMPRESSION: NO ACUTE RADIOGRAPHIC FINDING IN THE CHEST. Abdomen/Pelvis CT 11/20/19 00:00 IMPRESSION: Moderate free fluid the pelvis. No other significant findings in the abdomen or pelvis. Free fluid the pelvis is nonspecific. Assessment and Plan - Diagnosis (1) Pancytopenia Is this a current diagnosis for this admission?: Yes Plan: Patient denies history of malignancy, HIV, viral hepatitis, cirrhosis, rheumatologic or autoimmune diseases. B12 and folic acid are normal. Reticulocyte count is inappropriately normal. LDH is elevated indicating of some cellular lysis. Ferritin >10,000 indicative of an active significant inflammatory process. Iron sat is normal. I strongly suspect viral disease causing bone marrow suppression OR/AND underlying rheumatologic/autoimmune disorder or malignancy. CT abdomen/pelvis is however unremarkable shows no evidence of occult malignancy. Viral studies pending. Check JOANIE, rheumatoid factor, ESR and CRP, Parvovirus B19 Oncology following. Recommendations appreciated. Neutropenic precautions Eventually may need bone marrow biopsy. (2) Sepsis Qualifiers: Sepsis type: sepsis due to unspecified organism Sepsis acute organ dysfunction status: without acute organ dysfunction Qualified Code(s): A41.9 - Sepsis, unspecified organism Is this a current diagnosis for this admission?: Yes Plan: Patient with fever, hyperbilirubinemia, thrombocytopenia, neutropenia, bandemia tachycardia. Evaluating possible etiologies of patient's current sepsis. Chest x-ray is negative and urinalysis is negative as well. She does appear to have a viral syndrome/infection but COVID-19 test is negative. Other viral studies are pending including HIV, hepatitis panel, CMV, EBV. Does have oral thrush. Continue empiric vancomycin and cefepime-we will D/C antibiotics if remaining 3 blood culture bottles remain negative after 48 hours. Continue Diflucan for oral candidiasis. (3) Fever of unknown origin Is this a current diagnosis for this admission?: Yes Plan: Work-up as above Tylenol as needed (4) Nausea and vomiting Qualifiers: Vomiting type: unspecified Vomiting Intractability: non-intractable Qualified Code(s): R11.2 - Nausea with vomiting, unspecified Is this a current diagnosis for this admission?: Yes Plan: Antiemetics, IV fluids (5) Oral thrush Is this a current diagnosis for this admission?: Yes Plan: Diflucan IV. (6) Hyponatremia Is this a current diagnosis for this admission?: Yes Plan: Secondary to dehydration. Improved substantially with normal saline administration. Will continue on IV fluids for now. (7) Hyperbilirubinemia Is this a current diagnosis for this admission?: Yes Plan: Abdominal ultrasound shows no evidence of cirrhosis or biliary obstruction. Possible mild fatty liver disease. - Time Time Spent with patient: 15-24 minutes - Inpatient Certification Medical Necessity: Need Close Monitoring Due to Risk of Patient Decompensation, Risk of Complication if Not Cared For in Hospital
[2019-11-20] MEDS: FLUCONAZOLE 200 MG/NS RTU 200 MG/100 ML RTUPB IV SCH (13:16)
[2019-11-20 18:50] LABS: VANCOMYCIN,TROUGH 9.6 ug/mL (5.0-20.0)
[2019-11-21] MEDS ORDERED: VANCOMYCIN HCL INJ 500 MG VIAL ONE (02:21)
[2019-11-21] MEDS: VANCOMYCIN HCL 1,250 MG in DEXTROSE 5%-WATER 250 ML IV SCH ×3 (02:33→18:52)
[2019-11-21] MEDS: PROMETHAZINE HCL INJ 25 MG/1 ML VIAL IV PRN ×3 (04:23→23:27)
[2019-11-21] MEDS: ACETAMINOPHEN 325 MG TABLET PO PRN (04:30)
[2019-11-21] MEDS: ONDANSETRON HCL INJ/PF 4 MG/2 ML SDV IV PRN (05:07)
[2019-11-21 05:30] LABS: HEMATOCRIT 34.3 % (36.0-47.0); HEMOGLOBIN 11.9 g/dL (12.0-15.5); MEAN CORPUSCULAR HEMOGLOBIN 28.9 pg (27.0-33.4); MEAN CORPUSCULAR HGB CONC 34.8 g/dL (32.0-36.0); MEAN CORPUSCULAR VOLUME 83 fl (80-97); RED BLOOD COUNT 4.13 10^6/uL (3.72-5.28); RED CELL DISTRIBUTION WIDTH 14.6 % (11.5-14.0); WHITE BLOOD COUNT 2.1 10^3/uL (4.0-10.5)
[2019-11-21 05:32] LABS: INTERNATIONAL RATION (INR) 1.52; PROTHROMBIN TIME 18.4 SEC (11.4-15.4)
[2019-11-21 05:33] LABS: PARTIAL THROMBOPLASTIN TIME 40.5 SEC (23.5-35.8); PLATELET COUNT 35 10^3/uL (150-450)
[2019-11-21 05:52] LABS: ABSOLUTE MONOCYTES # (MANUAL) 0.1 10^3/uL (0.1-1.4); ANISOCYTOSIS SLIGHT; BAND NEUTROPHILS % (MANUAL) 1 % (3-5); BASOPHILS % (MANUAL) 0 % (0-2); EOSINOPHILS % (MANUAL) 0 % (0-6); LYMPHOCYTES % (MANUAL) 0 % (13-45); MONOCYTES % (MANUAL) 5 % (3-13); PLATELET COMMENT DECREASED; SEGMENTED NEUTROPHILS % (MAN) 94 % (42-78); TOTAL CELLS COUNTED 100
[2019-11-21 06:03] LABS: ALBUMIN 2.5 g/dL (3.5-5.0); ALKALINE PHOSPHATASE 169 U/L (38-126); ANION GAP 7 (5-19); ASPARTATE AMINO TRANSFERASE 106 U/L (14-36); BILIRUBIN,DIRECT 0.5 mg/dL (0.0-0.4); BILIRUBIN,TOTAL 1.2 mg/dL (0.2-1.3); BLOOD UREA NITROGEN 4 mg/dL (7-20); C-REACTIVE PROTEIN 84.5 mg/L (<10.0); CALCIUM 7.8 mg/dL (8.4-10.2); CARBON DIOXIDE 24 mmol/L (22-30); CHLORIDE 95 mmol/L (98-107); GLUCOSE 177 mg/dL (75-110); PHOSPHORUS 2.9 mg/dL (2.5-4.5); POTASSIUM 3.4 mmol/L (3.6-5.0); TOTAL PROTEIN 5.8 g/dL (6.3-8.2)
[2019-11-21 06:06] LABS: ERYTHROCYTE SEDIMENTATION RATE 30 mm/hr (0-20)
[2019-11-21 07:37] LABS: HEPATITS B SURFACE ANTIGEN Negative (Negative)
[2019-11-21] MEDS: INSULIN LISPRO 100 UNIT/ML 3 ML VIAL SUBCUT SCH ×4 (08:24→22:59)
[2019-11-21] MEDS ORDERED: NORMAL SALINE 1000 ML 1,000 ML IV ONE (09:00)
[2019-11-21] MEDS: CEFEPIME HCL 2 GM in DEXTROSE 5%-WATER 50 ML IV SCH ×2 (09:37→23:00)
[2019-11-21] MEDS: POTASSIUM CHLORIDE 10 MEQ TABLET.ER PO SCH (10:16)
[2019-11-21] MEDS: CALCIUM CARBONATE 600 MG TABLET PO SCH ×2 (10:17→18:12)
[2019-11-21 11:56] LABS: HEPATITIS C VIRUS ANTIBODY 0.1 s/co ratio (0.0-0.9)
[2019-11-21] MEDS: FLUCONAZOLE 200 MG/NS RTU 200 MG/100 ML RTUPB IV SCH (12:22)
[2019-11-21] MEDS ORDERED: METOPROLOL TARTRATE PF/INJ 5 MG/5 ML SDV IV PRN (13:19)
[2019-11-21] MEDS: NICOTINE 14 MG/24 HR PATCH.TD24 TD SCH (13:20)
[2019-11-21 13:34] LABS: ANION GAP 7 (5-19); BLOOD UREA NITROGEN 4 mg/dL (7-20); CALCIUM 7.5 mg/dL (8.4-10.2); CARBON DIOXIDE 26 mmol/L (22-30); CHLORIDE 95 mmol/L (98-107); GLUCOSE 167 mg/dL (75-110); POTASSIUM 3.8 mmol/L (3.6-5.0)
--- NOTE | 2019-11-21 14:15 | PDOC PROGRESS REPORT ---
Subjective Progress Note for:: 11/21/19 Subjective:: Patient admits to some tenderness in her belly only on palpation but no actual pain. Patient denies significant pain. Notably afebrile but very tachycardic yesterday and today. EKG showing sinus tachycardia. Reason For Visit: FEVER, PANCYTOPENIA Physical Exam Vital Signs: Temp Pulse Resp BP Pulse Ox 98.1 F 134 H 18 122/76 99 11/21/19 11:11 11/21/19 11:11 11/21/19 11:11 11/21/19 11:11 11/21/19 11:11 Intake & Output 11/20/19 11/21/19 11/22/19 06:59 06:59 06:59 Intake Total 4219 2108 Output Total 200 1150 Balance 4019 958 Weight 66.1 kg 66.1 kg General appearance: PRESENT: no acute distress, cooperative Neck exam: ABSENT: JVD Respiratory exam: PRESENT: clear to auscultation stas, unlabored. ABSENT: tachypnea, wheezes Cardiovascular exam: PRESENT: +S1, +S2, tachycardia. ABSENT: irregular rhythm GI/Abdominal exam: PRESENT: soft, tenderness. ABSENT: distended, firm, guarding, rebound, rigid Neurological exam: PRESENT: alert, awake, oriented to person, oriented to place, oriented to time, oriented to situation Psychiatric exam: PRESENT: anxious - mildly. ABSENT: agitated Results Laboratory Results: 11/21/19 05:06 11/21/19 11/21/19 05:06 05:06 WBC 2.1 L RBC 4.13 Hgb 11.9 L Hct 34.3 L MCV 83 MCH 28.9 MCHC 34.8 RDW 14.6 H Plt Count 35 L Seg Neutrophils % Not Reportable Sodium 126.0 L Potassium 3.4 L Chloride 95 L Carbon Dioxide 24 Anion Gap 7 BUN 4 L Creatinine 0.31 L Est GFR ( Amer) > 60 Glucose 177 H Calcium 7.8 L Phosphorus 2.9 Magnesium 1.7 Total Bilirubin 1.2 AST 106 H Alkaline Phosphatase 169 H C-Reactive Protein 84.5 H Total Protein 5.8 L Albumin 2.5 L 11/19/19 11:15 Blood Blood Culture (PCR) - Final Staphylococcus Species 11/19/19 08:50 Blood Blood Culture (PCR) - Final Staphylococcus Species 11/19/19 11/19/19 08:08 08:08 Creatine Kinase 102 Troponin I < 0.012 Impressions: Abdomen Ultrasound 11/19/19 00:00 IMPRESSION: 1. Cholelithiasis. 2. The liver is enlarged and difficult to image suggesting fatty infiltration. Portal vein is patent with hepatopedal flow. No ultrasound evidence of cirrhosis. Chest X-Ray 11/19/19 08:18 IMPRESSION: NO ACUTE RADIOGRAPHIC FINDING IN THE CHEST. Abdomen/Pelvis CT 11/20/19 00:00 IMPRESSION: Moderate free fluid the pelvis. No other significant findings in the abdomen or pelvis. Free fluid the pelvis is nonspecific. Assessment and Plan - Diagnosis (1) Pancytopenia Is this a current diagnosis for this admission?: Yes Plan: I strongly suspect viral disease causing bone marrow suppression OR/AND underlying rheumatologic/autoimmune disorder or malignancy. Patient denies history of malignancy, HIV, viral hepatitis, cirrhosis, drug use, rheumatologic or autoimmune diseases. B12 and folic acid are normal. Reticulocyte count is inappropriately normal. LDH is elevated indicating of some cellular lysis. Ferritin >10,000, CRP and ESR elevated indicative of an active significant inflammatory process. Iron sat is normal ruling out hemochromatosis. CT abdomen/pelvis is however unremarkable shows no evidence of occult malignancy but shows some free pelvic fluid. Viral hepatitis panel is negative. HIV test still pending. Parvovirus B19, CMV and EBV, JOANIE, RF, anti-dsDNA, ESR and CRP, pending. If HIV test comes back negative, will plan for bone marrow biopsy. (2) Coagulase negative Staphylococcus bacteremia Is this a current diagnosis for this admission?: Yes Plan: Initially thought to be contaminant, but in light of growth of methicillin res istant coagulase-negative staph in 1 of 2 bottles from both sets of blood culture, this very likely be a true bacteremia. Patient has been on vancomycin since admission which will be continued. Check vancomycin trough. Repeat blood cultures. Check echocardiogram. Urine drug screen. (3) Sinus tachycardia Is this a current diagnosis for this admission?: Yes Plan: Persistently sinus tachycardia in the 120s-150s since yesterday despite administration of IV fluids. She denies pain, she is not hypoxic, only mildly anxious, she is afebrile, not hypotensive. Unclear if she is withdrawing from something but she denies any history of illicit drugs. Tobacco smoker. Check EKG and trend troponin. Check UDS. Start on Lopressor 50 mg every 8 hours. (4) Sepsis Qualifiers: Sepsis type: sepsis due to unspecified organism Sepsis acute organ dysfunction status: with acute organ dysfunction Severe sepsis acute organ dysfunction type: unspecified Severe sepsis shock status: without septic shock Qualified Code(s): A41.9 - Sepsis, unspecified organism; R65.20 - Severe sepsis without septic shock Is this a current diagnosis for this admission?: Yes Plan: Admitted with fever, hyperbilirubinemia, pancytopenia, bandemia tachycardia. Chest x-ray is negative and urinalysis is negative as well. She does appear to have a viral syndrome/infection but COVID-19 test is negative. So far only likely source seems to be a possible coagulase staph bacteremia. Treatment as above. (5) Fever Qualifiers: Fever type: unspecified Qualified Code(s): R50.9 - Fever, unspecified Is this a current diagnosis for this admission?: Yes Plan: Last febrile episode was 6 PM yesterday. Continue to monitor vitals. (6) Oral thrush Is this a current diagnosis for this admission?: Yes Plan: Diflucan IV. (7) Hyponatremia Is this a current diagnosis for this admission?: Yes Plan: Continue to monitor BMP. We will add sodium tablets. (8) Hyperbilirubinemia Is this a current diagnosis for this admission?: Yes Plan: Abdominal ultrasound shows no evidence of cirrhosis or biliary obstruction. Possible mild fatty liver disease. - Time Time Spent with patient: 15-24 minutes
[2019-11-21 14:45] LABS: URINE AMPHETAMINES SCREEN NEGATIVE; URINE BARBITURATES SCREEN NEGATIVE; URINE BENZODIAZEPINES SCREEN NEGATIVE; URINE COCAINE SCREEN NEGATIVE; URINE MARIJUANA (THC) SCREEN NEGATIVE; URINE METHADONE SCREEN NEGATIVE; URINE PHENCYCLIDINE SCREEN NEGATIVE
[2019-11-21 15:25] LABS: CREATINE KINASE MB 0.45 ng/mL (<4.55)
[2019-11-21] MEDS: METOPROLOL TARTRATE 50 MG TABLET PO SCH ×2 (15:34→18:12)
[2019-11-21] MEDS: SODIUM CHLORIDE 1 GM TABLET PO SCH ×2 (15:34→23:00)
[2019-11-21 15:37] LABS: TROPONIN I 0.26 ng/mL
[2019-11-21 15:54] LABS: CHLAM PCR NOT DETECTED (NOT DETECT)
--- NOTE | 2019-11-21 17:09 | EKG REPORT ---
SEVERITY:- ABNORMAL ECG - SINUS TACHYCARDIA LOW VOLTAGE IN FRONTAL LEADS NONSPECIFIC T ABNORMALITIES, LATERAL LEADS : Confirmed by: Minal Ramos MD 21-Nov-2019 17:08:51
--- NOTE | 2019-11-21 17:09 | EKG REPORT ---
SEVERITY:- ABNORMAL ECG - SINUS TACHYCARDIA ABNORMAL T, CONSIDER ISCHEMIA, LATERAL LEADS : Confirmed by: Minal Ramos MD 21-Nov-2019 17:08:46
[2019-11-21] MEDS: NORMAL SALINE 1000 ML 1,000 ML IV PRN (20:24)
[2019-11-21 20:34] LABS: CREATINE KINASE MB 0.34 ng/mL (<4.55); TROPONIN I 0.207 ng/mL
[2019-11-22] MEDS: VANCOMYCIN HCL 1,250 MG in DEXTROSE 5%-WATER 250 ML IV SCH ×3 (02:16→18:38)
[2019-11-22] MEDS: PROMETHAZINE HCL INJ 25 MG/1 ML VIAL IV PRN (04:08)
[2019-11-22 05:58] LABS: INTERNATIONAL RATION (INR) 1.33; PROTHROMBIN TIME 16.6 SEC (11.4-15.4)
[2019-11-22 05:59] LABS: FIBRINOGEN 331 mg/dL (209-497); PARTIAL THROMBOPLASTIN TIME 40.6 SEC (23.5-35.8)
[2019-11-22 06:01] LABS: HEMATOCRIT 27.8 % (36.0-47.0); MEAN CORPUSCULAR HEMOGLOBIN 29.5 pg (27.0-33.4); MEAN CORPUSCULAR HGB CONC 35.3 g/dL (32.0-36.0); MEAN CORPUSCULAR VOLUME 84 fl (80-97); RED BLOOD COUNT 3.32 10^6/uL (3.72-5.28); RED CELL DISTRIBUTION WIDTH 14.5 % (11.5-14.0)
[2019-11-22 06:02] LABS: D-DIMER 1.15 ug/mL (0.00-0.50)
[2019-11-22 06:18] LABS: ALBUMIN 2.3 g/dL (3.5-5.0); ALKALINE PHOSPHATASE 134 U/L (38-126); ANION GAP 6 (5-19); ASPARTATE AMINO TRANSFERASE 108 U/L (14-36); BILIRUBIN,DIRECT 0.3 mg/dL (0.0-0.4); BILIRUBIN,TOTAL 0.7 mg/dL (0.2-1.3); BLOOD UREA NITROGEN 8 mg/dL (7-20); C-REACTIVE PROTEIN 86.6 mg/L (<10.0); CALCIUM 7.7 mg/dL (8.4-10.2); CARBON DIOXIDE 24 mmol/L (22-30); CHLORIDE 97 mmol/L (98-107); GLUCOSE 153 mg/dL (75-110); POTASSIUM 3.9 mmol/L (3.6-5.0); TOTAL PROTEIN 5.2 g/dL (6.3-8.2)
[2019-11-22 06:19] LABS: TROPONIN I 0.13 ng/mL
[2019-11-22 06:20] LABS: ABSOLUTE MONOCYTES # (MANUAL) 0.1 10^3/uL (0.1-1.4); BAND NEUTROPHILS % (MANUAL) 2 % (3-5); BASOPHILS % (MANUAL) 0 % (0-2); EOSINOPHILS % (MANUAL) 0 % (0-6); LYMPHOCYTES % (MANUAL) 2 % (13-45); MONOCYTES % (MANUAL) 8 % (3-13); SEGMENTED NEUTROPHILS % (MAN) 88 % (42-78); TOTAL CELLS COUNTED 50
[2019-11-22 06:23] LABS: ANISOCYTOSIS SLIGHT; PLATELET COMMENT DECREASED
[2019-11-22 06:24] LABS: HEMOGLOBIN 9.8 g/dL (12.0-15.5)
[2019-11-22 06:27] LABS: WHITE BLOOD COUNT 1.5 10^3/uL (4.0-10.5)
[2019-11-22 06:28] LABS: PLATELET COUNT 24 10^3/uL (150-450)
[2019-11-22 06:38] LABS: ERYTHROCYTE SEDIMENTATION RATE 32 mm/hr (0-20)
[2019-11-22] MEDS: NORMAL SALINE 1000 ML 1,000 ML IV PRN (07:09)
[2019-11-22 07:19] LABS: A TYPE INFLUENZA AG NEGATIVE (NEGATIVE); B INFLUENZA AG NEGATIVE (NEGATIVE)
--- NOTE | 2019-11-22 07:43 | Progress Note ---
Provider Note Provider Note: Patient remains febrile. Blood counts remain low. Still awaiting hepatitis and HIV results. If all negative, will plan bone marrow biopsy. Until then, may transfuse if indicated.
[2019-11-22] MEDS: INSULIN LISPRO 100 UNIT/ML 3 ML VIAL SUBCUT SCH ×4 (08:09→23:58)
[2019-11-22 08:28] LABS: ANTINUCLEAR ANTIBODIES Negative (Negative)
[2019-11-22] MEDS: ONDANSETRON HCL INJ/PF 4 MG/2 ML SDV IV PRN (08:43)
[2019-11-22] MEDS: FUROSEMIDE INJ/PF 40 MG/4 ML SDV IV SCH ×2 (08:43→09:58)
[2019-11-22] MEDS: CALCIUM CARBONATE 600 MG TABLET PO SCH ×2 (10:01→17:05)
[2019-11-22] MEDS: METOPROLOL TARTRATE 50 MG TABLET PO SCH ×2 (10:01→14:15)
[2019-11-22] MEDS: NICOTINE 14 MG/24 HR PATCH.TD24 TD SCH (10:01)
[2019-11-22] MEDS: POTASSIUM CHLORIDE 10 MEQ TABLET.ER PO SCH (10:01)
[2019-11-22] MEDS: CEFEPIME HCL 2 GM in DEXTROSE 5%-WATER 50 ML IV SCH (10:02)
[2019-11-22] MEDS: SODIUM CHLORIDE 1 GM TABLET PO SCH (10:07)
[2019-11-22 10:21] LABS: VANCOMYCIN,TROUGH 16.1 ug/mL (5.0-20.0)
[2019-11-22] MEDS: ACETAMINOPHEN 325 MG TABLET PO PRN (12:02)
--- NOTE | 2019-11-22 12:26 | RADIOLOGY REPORT (SQ) ---
EXAM DESCRIPTION: CTA CHEST IMAGES COMPLETED DATE/TIME: 11/22/2019 11:08 am REASON FOR STUDY: tachycardia,tachypnea, elevated bnp. r/o pe COMPARISON: None. TECHNIQUE: CT scan of the chest performed using helical scanning technique with dynamic intravenous contrast injection. Images reviewed with lung, soft tissue and bone windows. Reconstructed coronal and sagittal MPR images reviewed. Additional 3 dimensional post-processing performed to develop Maximal Intensity Projection images (MT P). All images stored on PACS. All CT scanners at this facility use dose modulation, iterative reconstruction, and/or weight based d osing when appropriate to reduce radiation dose to as low as reasonably achievable (ALARA). [facility]: Dose Right [facility]: CareDose [facility]: Dose Right [facility]: Teradose 4D [facility]: 365net CONTRAST TYPE AND DOSE: contrast/concentration: Isovue 350.00 mg/ml; Total Contrast Delivered: 50.0 ml; Total Saline Delivered: 76.0 ml Contrast bolus adequate for pulmonary arteries and aorta. RENAL FUNCTION: BUN 8 creatinine 0.48. RADIATION DOSE: CT Rad equipment meets quality standard of care and radiation dose reduction techniq ues were employed. CTDIvol: 3.3 - 14.3 mGy. DLP: 500 mGy-cm. . LIMITATIONS: None. FINDINGS: LUNGS AND PLEURA: Patchy ground-glass opacities in the left lung, particularly the left up per lobe. A few patchy opacities in the right upper lobe. No pleural effusion. AORTA AND GREAT VESSELS: No aneurysm. No dissection. HEART: Small pericardial effusion. No significant coronary artery calcifications. PULMONARY ARTERIES: No emboli visualized in the main pulmonary arteries or the segmental branches. HILAR AND MEDIASTINAL STRUCTURES: No identified masses or abnormal nodes. HARDWARE: None in the chest. UPPER ABDOMEN: No significant findings. Limited exam. THYROID AND OTHER SOFT TISSUES: No masses. No adenopathy. BONES: No acute or significant finding. 3D MIPS: Confirm above findings. OTHER: No other significant finding. IMPRESSION: 1. NORMAL CTA OF THE CHEST. NO PULMONARY EMBOLI. 2. PATCHY GROUND-GLASS OPACITIES PRIMARILY IN THE LEFT LUNG. NONSPECIFIC. CONCERNING FOR MULTIFOCAL INFECTION. COMMENT: Quality ID # [id number]: Final reports with documentation of one or more dose reduction techniques (e.g., Automated exposure control, adjustment of the mA and/or kV according to patient size, use of iterative reconstruction technique) TECHNICAL DOCUMENTATION: JOB ID: [id number] 2010 [employer]- All Rights Reserved Reading location - IP/workstation name: [email or web address]
[2019-11-22] MEDS: FLUCONAZOLE 200 MG/NS RTU 200 MG/100 ML RTUPB IV SCH (14:15)
--- NOTE | 2019-11-22 14:27 | PDOC PROGRESS REPORT ---
Subjective Progress Note for:: 11/22/19 Subjective:: Patient feels well today. Has some cough but otherwise no other complaints. Denies any shortness of breath or chest pain. Notably had a temperature of 100.3 earlier this morning. Reason For Visit: FEVER, PANCYTOPENIA Physical Exam Vital Signs: Temp Pulse Resp BP Pulse Ox 97.8 F 103 H 18 108/76 99 11/22/19 11:07 11/22/19 11:07 11/22/19 11:07 11/22/19 11:07 11/22/19 11:07 Intake & Output 11/21/19 11/22/19 11/23/19 06:59 06:59 06:59 Intake Total 3108 1850 50 Output Total 1150 710 Balance 1958 1140 50 Weight 66.1 kg 66.3 kg General appearance: PRESENT: no acute distress, cooperative Head exam: PRESENT: normocephalic Neck exam: ABSENT: JVD Respiratory exam: PRESENT: symmetrical, unlabored. ABSENT: accessory muscle use, retraction, tachypnea Cardiovascular exam: PRESENT: tachycardia. ABSENT: irregular rhythm GI/Abdominal exam: ABSENT: ascites, distended Extremities exam: ABSENT: calf tenderness, pedal edema Musculoskeletal exam: PRESENT: ambulatory Neurological exam: PRESENT: alert, awake, oriented to person, oriented to place, oriented to time Psychiatric exam: PRESENT: unusual affect. ABSENT: agitated, anxious Focused psych exam: PRESENT: other - Very slow speech. Some psychomotor retardation. Skin exam: PRESENT: pallor. ABSENT: jaundice Results Laboratory Results: 11/22/19 05:25 11/22/19 05:25 11/21/19 11/22/19 11/22/19 13:03 05:25 05:25 WBC 1.5 L* RBC 3.32 L Hgb 9.8 L D Hct 27.8 L MCV 84 MCH 29.5 MCHC 35.3 RDW 14.5 H Plt Count 24 L* Seg Neutrophils % Not Reportable Sodium 127.5 L 127.2 L Potassium 3.8 3.9 Chloride 95 L 97 L Carbon Dioxide 26 24 Anion Gap 7 6 BUN 4 L 8 Creatinine 0.39 L 0.48 L Est GFR ( Amer) > 60 > 60 Glucose 167 H 153 H Calcium 7.5 L 7.7 L Total Bilirubin 0.7 AST 108 H Alkaline Phosphatase 134 H C-Reactive Protein 86.6 H Total Protein 5.2 L Albumin 2.3 L 11/19/19 08:50 Blood Blood Culture (PCR) - Final Staphylococcus Species 11/19/19 08:50 Blood Blood Culture - Final Staphylococcus Epidermidis 11/19/19 11:15 Blood Blood Culture (PCR) - Final Staphylococcus Species 11/19/19 11:15 Blood Blood Culture - Final Staphylococcus Epidermidis 11/19/19 11/19/19 11/21/19 08:08 08:08 13:03 Creatine Kinase 102 53 CK-MB (CK-2) Troponin I < 0.012 NT-Pro-B Natriuret Pep 11/21/19 11/21/19 11/21/19 14:30 17:20 17:20 Creatine Kinase CK-MB (CK-2) 0.45 0.44 Troponin I 0.260 0.225 NT-Pro-B Natriuret Pep 11/21/19 11/21/19 11/22/19 19:30 19:30 05:25 Creatine Kinase 48 CK-MB (CK-2) 0.34 Troponin I 0.207 0.130 NT-Pro-B Natriuret Pep 43246 H Impressions: Abdomen Ultrasound 11/19/19 00:00 IMPRESSION: 1. Cholelithiasis. 2. The liver is enlarged and difficult to image suggesting fatty infiltration. Portal vein is patent with hepatopedal flow. No ultrasound evidence of cirrhosis. Chest X-Ray 11/19/19 08:18 IMPRESSION: NO ACUTE RADIOGRAPHIC FINDING IN THE CHEST. Abdomen/Pelvis CT 11/20/19 00:00 IMPRESSION: Moderate free fluid the pelvis. No other significant findings in the abdomen or pelvis. Free fluid the pelvis is nonspecific. Chest/Abdomen CTA 11/22/19 00:00 IMPRESSION: 1. NORMAL CTA OF THE CHEST. NO PULMONARY EMBOLI. 2. PATCHY GROUND-GLASS OPACITIES PRIMARILY IN THE LEFT LUNG. NONSPECIFIC. CONCERNING FOR MULTIFOCAL INFECTION. Assessment and Plan - Diagnosis (1) Pancytopenia Is this a current diagnosis for this admission?: Yes Plan: Suspect viral disease causing bone marrow suppression OR/AND underlying rheumatologic/autoimmune disorder or malignancy. Bacteremia probably contributing. Patient denies history of malignancy, HIV, viral hepatitis, cirrhosis, drug use, rheumatologic or autoimmune diseases. B12, folic acid, JOANIE, anti dsDNA are normal. Reticulocyte inappropriately normal. High LDH, low haptoglobin indicating of some cellular lysis. Ferritin >10,000, CRP and ESR elevated indicative of an active significant inflammatory process. Iron sat is normal ruling out hemochromatosis. CT abdomen/pelvis is however unremarkable shows no evidence of occult malignancy but shows some free pelvic fluid. CTA chest without lymphadenopathy Viral hepatitis panel is negative and only shows immunity. HIV, Parvovirus B19, CMV and EBV, RF pending. If HIV test comes back negative, will plan for bone marrow biopsy. (2) Coagulase negative Staphylococcus bacteremia Is this a current diagnosis for this admission?: Yes Plan: Likely a true bacteremia. Blood culture set from 11/21/2019 resulting positive in 1 of the bottles. Vancomycin trough is therapeutic today. We will repeat blood cultures again tomorrow morning. Only notable source at this time is decubitus ulcer stage2-3 Urine drug screen negative and patient denies history of IV drug use. Check echocardiogram. (3) Sinus tachycardia Is this a current diagnosis for this admission?: Yes Plan: Common causes of tachycardia have been addressed: She denies pain, she is not hypoxic, not anxious, she is afebrile, not hypotensive, and CTA of the chest done today does not show any evidence of PE. UDS negative. Troponin showed flat trend of about 0.2 and this leak was probably secondary to persistent tachycardia in the 120s to 150s. Another possibility may be viral myocarditis. Heart rate is better today maintaining below 110 after patient was started on Lopressor 50 mg every 8 hours. We will check an echocardiogram and start Lasix given elevated BNP. (4) Sepsis Qualifiers: Sepsis type: sepsis due to unspecified organism Sepsis acute organ dysfunction status: with acute organ dysfunction Severe sepsis acute organ dysfunction type: unspecified Severe sepsis shock status: without septic shock Qualified Code(s): A41.9 - Sepsis, unspecified organism; R65.20 - Severe sepsis without septic shock Is this a current diagnosis for this admission?: Yes Plan: Admitted with fever, hyperbilirubinemia, pancytopenia, bandemia tachycardia. Chest x-ray is negative and urinalysis is negative as well. She does appear to have a viral syndrome/infection but COVID-19 test is negative. So far only likely source seems to be a possible coagulase staph bacteremia. Treatment as above. (5) Fever Qualifiers: Fever type: unspecified Qualified Code(s): R50.9 - Fever, unspecified Is this a current diagnosis for this admission?: Yes Plan: 100.3 this morning. Continue to monitor. Treatment as above. (6) Oral thrush Is this a current diagnosis for this admission?: Yes Plan: Diflucan IV. (7) Hyponatremia Is this a current diagnosis for this admission?: Yes Plan: Continue to monitor BMP. Lasix. (8) Hyperbilirubinemia Is this a current diagnosis for this admission?: Yes Plan: Abdominal ultrasound shows no evidence of cirrhosis or biliary obstruction. P ossible mild fatty liver disease. - Time Time Spent with patient: 15-24 minutes
--- NOTE | 2019-11-22 14:58 | XCELERA REPORT ---
[address] [address] Transthoracic Echocardiogram Report Name: ARMIDA COLEMAN Age: 38 yrs Gender: Female : 1980 Patient Status: Inpatient Patient Location: [address] [place] [address] Study Date: 11/22/2019 11:37 AM Height: 62 in Weight: 146 lb BSA: 1.7 m2 Procedure: A complete two-dimensional transthoracic echocardiogram was performed (2D, M-mode, spectral and color flow Doppler). Study Quality: Excellent. Reason For Study: Staph bacteremia, tachicardia, eval for endocard History: Shortness of breath. Ordering Physician: NOMAN COBB Interpretation Summary The left ventricle is normal in size, thickness and function. Left ventricular systolic function is severely reduced. The Ejection Fraction estimate is 30-35%. Doppler measurements suggest normal left ventricular diastolic function. Moderate global hypokinesis with severe hypokinesis of the basal anterior and basal inferior pcaheco. There is no thrombus. Mild MR, trace to mild TR. Small, hemodynamically insignificant anterior and posterior pericardial effusion. No prior studies for comparison. MMode/2D Measurements & Calculations RVDd: 2.2 cm LVIDd: 5.6 cm FS: 21.5 % Ao root diam: 2.7 cm IVSd: 0.93 cm LVIDs: 4.4 cm EDV(Teich): 151.5 ml Ao root area: 5.9 cm2 LVPWd: 0.78 cm ESV(Teich): 86.2 ml EF(Teich): 43.1 % Doppler Measurements & Calculations MV E max chavo: MV dec slope: Ao V2 max: LV V1 max P.1 cm/sec 441.7 cm/sec2 119.3 cm/sec 2.2 mmHg MV A max chavo: MV dec time: 0.20 sec Ao max PG: LV V1 max: 47.9 cm/sec 5.7 mmHg 74.3 cm/sec MV E/A: 1.8 MR max chavo: PA V2 max: 443.0 cm/sec 73.6 cm/sec MR max PG: PA max P.2 mmHg 78.5 mmHg Left Ventricle The left ventricle is normal in size, thickness and function. Left ventricular systolic function is severely reduced. The Ejection Fraction estimate is 30- 35%. Doppler measurements suggest normal left ventricular diastolic function. Moderate global hypokinesis with severe hypokinesis of the basal anterior and basal inferior pacheco. There is no thrombus. Right Ventricle The right ventricle is normal in size, thickness and function. The right ventricular systolic function is normal. Atria The right atrium is normal. The left atrial size is normal. Mitral Valve The mitral valve is normal in structure and function. There is a mild amount of mitral regurgitation. Aortic Valve The aortic valve is normal in structure and functions normally. There is no aortic valve stenosis. No aortic regurgitation is present. Tricuspid Valve The tricuspid is normal in structure and function. There is a trace to mild amount of tricuspid regurgitation. Pulmonic Valve The pulmonic valve is normal in structure and function. There is no pulmonic valvular regurgitation. Effusions Small, hemodynamically insignificant anterior and posterior pericardial effusion. : NOMAN COBB Antonio
[2019-11-22] MEDS: METOPROLOL SUCCINATE 50 MG TAB.SR.24H PO SCH (23:58)
[2019-11-23] MEDS: PROMETHAZINE HCL INJ 25 MG/1 ML VIAL IV PRN ×3 (00:14→21:29)
--- NOTE | 2019-11-23 00:56 | EKG REPORT ---
SEVERITY:- ABNORMAL ECG - SINUS TACHYCARDIA ABNORMAL T, CONSIDER ISCHEMIA, LATERAL LEADS : Confirmed by: Minal Ramos MD 23-Nov-2019 00:55:28
--- NOTE | 2019-11-23 01:48 | RADIOLOGY REPORT (SQ) ---
CLINICAL INDICATION: sudden chest pain/pressure. TECHNIQUE: A single portable AP view was obtained of the chest at 0123 hours. COMPARISON: November 19, 2019. FINDINGS: The cardiomediastinal silhouette appears larger than prior, likely technical. The lungs that show mild progressive interstitial changes bilaterally and patchy airspace disease. No dense consolidation. No evidence of effusion or pneumothorax. The visualized bones are unremarkable. IMPRESSION: The cardiomediastinal silhouette appears larger than it did on prior. This may be projectional. There is progressive interstitial prominence with subtle associated superimposed patchy alveolar space disease. This is adverse change.
[2019-11-23] MEDS: VANCOMYCIN HCL 1,250 MG in DEXTROSE 5%-WATER 250 ML IV SCH ×3 (02:09→18:24)
[2019-11-23 04:17] LABS: HEMATOCRIT 28.6 % (36.0-47.0); MEAN CORPUSCULAR HEMOGLOBIN 29.2 pg (27.0-33.4); MEAN CORPUSCULAR HGB CONC 34.9 g/dL (32.0-36.0); MEAN CORPUSCULAR VOLUME 84 fl (80-97); RED BLOOD COUNT 3.41 10^6/uL (3.72-5.28); RED CELL DISTRIBUTION WIDTH 14.2 % (11.5-14.0)
[2019-11-23 04:26] LABS: BLOOD UREA NITROGEN 7 mg/dL (7-20); CALCIUM 8.5 mg/dL (8.4-10.2); CHLORIDE 98 mmol/L (98-107); GLUCOSE 103 mg/dL (75-110); POTASSIUM 4.2 mmol/L (3.6-5.0)
[2019-11-23 04:31] LABS: CARBON DIOXIDE 29 mmol/L (22-30)
[2019-11-23 04:34] LABS: ANION GAP 3 (5-19)
[2019-11-23 04:41] LABS: PLATELET COUNT 20 10^3/uL (150-450); WHITE BLOOD COUNT 1.3 10^3/uL (4.0-10.5)
[2019-11-23 04:44] LABS: ABSOLUTE LYMPHOCYTES# (MANUAL) 0.1 10^3/uL (0.5-4.7); ABSOLUTE MONOCYTES # (MANUAL) 0.1 10^3/uL (0.1-1.4); BASOPHILS % (MANUAL) 0 % (0-2); EOSINOPHILS % (MANUAL) 0 % (0-6); LYMPHOCYTES % (MANUAL) 6 % (13-45); MONOCYTES % (MANUAL) 8 % (3-13); SEGMENTED NEUTROPHILS % (MAN) 86 % (42-78); TOTAL CELLS COUNTED 50
[2019-11-23 04:46] LABS: ANISOCYTOSIS SLIGHT; OVALOCYTES SLIGHT; PLATELET COMMENT DECREASED; PLATELET LARGE PRESENT; POIKILOCYTOSIS SLIGHT; POLYCHROMASIA SLIGHT
[2019-11-23] MEDS: INSULIN LISPRO 100 UNIT/ML 3 ML VIAL SUBCUT SCH ×4 (08:00→21:30)
[2019-11-23] MEDS ORDERED: LOSARTAN POTASSIUM 25 MG TABLET PO SCH (10:00)
--- NOTE | 2019-11-23 10:40 | PDOC PROGRESS REPORT ---
Subjective Progress Note for:: 11/23/19 Subjective:: Had some chest pain briefly last night but resolved now. Patient is getting anxious to leave but have explained to her the severity of her conditions as well as her heart failure and explained to her of the potential risks of not being treated and not staying in the hospital. Patient otherwise denies shortness of breath at this time. Denies any nausea vomiting. States she did not feel like eating yesterday but I have encouraged her quite vividly that food intake is necessary for adequate recovery. Reason For Visit: FEVER, PANCYTOPENIA Physical Exam Vital Signs: Temp Pulse Resp BP Pulse Ox 98.3 F 102 H 17 132/99 H 100 11/23/19 07:19 11/23/19 07:19 11/23/19 07:19 11/23/19 07:19 11/23/19 07:19 Intake & Output 11/22/19 11/23/19 11/24/19 06:59 06:59 06:59 Intake Total 1950 463 250 Output Total 710 1020 Balance 1240 -557 250 Weight 66.3 kg 66.6 kg General appearance: PRESENT: no acute distress, cooperative Neck exam: ABSENT: JVD Respiratory exam: PRESENT: crackles - mild, symmetrical, unlabored. ABSENT: tachypnea, wheezes Cardiovascular exam: PRESENT: +S1, +S2, tachycardia. ABSENT: irregular rhythm GI/Abdominal exam: PRESENT: soft. ABSENT: rebound, rigid, tenderness Neurological exam: PRESENT: alert, awake, oriented to person, oriented to place, oriented to time, oriented to situation Results Laboratory Results: 11/23/19 03:58 11/23/19 03:58 11/23/19 11/23/19 03:58 03:58 WBC 1.3 L* RBC 3.41 L Hgb 10.0 L Hct 28.6 L MCV 84 MCH 29.2 MCHC 34.9 RDW 14.2 H Plt Count 20 L* Seg Neutrophils % Not Reportable Sodium 130.2 L Potassium 4.2 Chloride 98 Carbon Dioxide 29 Anion Gap 3 L BUN 7 Creatinine 0.44 L Est GFR ( Amer) > 60 Glucose 103 Calcium 8.5 Magnesium 1.9 11/19/19 08:50 Blood Blood Culture (PCR) - Final Staphylococcus Species 11/19/19 08:50 Blood Blood Culture - Final Staphylococcus Epidermidis 11/19/19 11:15 Blood Blood Culture (PCR) - Final Staphylococcus Species 11/19/19 11:15 Blood Blood Culture - Final Staphylococcus Epidermidis 11/19/19 11/19/19 11/21/19 08:08 08:08 13:03 Creatine Kinase 102 53 CK-MB (CK-2) Troponin I < 0.012 NT-Pro-B Natriuret Pep 11/21/19 11/21/19 11/21/19 14:30 17:20 17:20 Creatine Kinase CK-MB (CK-2) 0.45 0.44 Troponin I 0.260 0.225 NT-Pro-B Natriuret Pep 11/21/19 11/21/19 11/22/19 19:30 19:30 05:25 Creatine Kinase 48 CK-MB (CK-2) 0.34 Troponin I 0.207 0.130 NT-Pro-B Natriuret Pep 32355 H 11/23/19 03:58 Creatine Kinase CK-MB (CK-2) Troponin I 0.050 NT-Pro-B Natriuret Pep Impressions: Abdomen Ultrasound 11/19/19 00:00 IMPRESSION: 1. Cholelithiasis. 2. The liver is enlarged and difficult to image suggesting fatty infiltration. Portal vein is patent with hepatopedal flow. No ultrasound evidence of cirrhosis. Abdomen/Pelvis CT 11/20/19 00:00 IMPRESSION: Moderate free fluid the pelvis. No other significant findings in the abdomen or pelvis. Free fluid the pelvis is nonspecific. Chest/Abdomen CTA 11/22/19 00:00 IMPRESSION: 1. NORMAL CTA OF THE CHEST. NO PULMONARY EMBOLI. 2. PATCHY GROUND-GLASS OPACITIES PRIMARILY IN THE LEFT LUNG. NONSPECIFIC. CONCERNING FOR MULTIFOCAL INFECTION. Chest X-Ray 11/23/19 00:00 IMPRESSION: The cardiomediastinal silhouette appears larger than it did on prior. This may be projectional. There is progressive interstitial prominence with subtle associated superimposed patchy alveolar space disease. This is adverse change. Assessment and Plan - Diagnosis (1) Pancytopenia Is this a current diagnosis for this admission?: Yes Plan: Suspect viral disease causing bone marrow suppression OR/AND underlying rheumatologic/autoimmune disorder or malignancy. Bacteremia probably contributing. Patient denies history of malignancy, HIV, viral hepatitis, cirrhosis, drug use, rheumatologic or autoimmune diseases. B12, folic acid, JOANIE, anti dsDNA are normal. Reticulocyte inappropriately normal. High LDH, low haptoglobin indicating of some cellular lysis. Ferritin >10,000, CRP and ESR elevated indicative of an active significant inflammatory process. Iron sat is normal ruling out hemochromatosis. CT abdomen/pelvis is however unremarkable shows no evidence of occult malignancy but shows some free pelvic fluid. CTA chest without lymphadenopathy Viral hepatitis panel is negative and only shows immunity. However patient is immunosuppressed so will also check HCV RNA. HIV, Parvovirus B19, CMV and EBV, RF pending. If HIV test comes back negative, will plan for bone marrow biopsy-oncology following. (2) Heart failure with reduced ejection fraction due to cardiomyopathy Is this a current diagnosis for this admission?: Yes Plan: Patient now with acute systolic heart failure with new onset cardiomyopathy. EKG showing new T wave inversions. However troponin trend was initially flat around 0.23 but now seems to be trending down. Echo showing LV global hyp okinesis with increased severity regionality and EF of 35%. Given patient's age, lack of illicit drug use, ischemic cardiomyopathy is less likely. However, she will still need ischemic w/up later on once her bacteremia and current condition improves. I have strong suspicion of viral myocarditis as the etiology. Unfortunately, we don't have cardiac MRI capabilities here. Awaiting viral studies. Start Entresto if blood pressure tolerates. Continue Lasix IV. Strict I's and O's. Fluid restriction. Changed beta-ileana to Toprol-XL. (3) Coagulase negative Staphylococcus bacteremia Is this a current diagnosis for this admission?: Yes Plan: Likely a true bacteremia with staph epi. Vancomycin trough became therapeutic y esterday. Repeat blood cultures again today. Only notable source at this time is decubitus ulcer stage2-3. Urine drug screen negative and patient denies history of IV drug use. TTE shows no vegetations. CTA/P and CT chest show no embolic events. Consult ID ([id number]) Sepsis Qualifiers: Sepsis type: sepsis due to unspecified organism Sepsis acute organ dysfunction status: with acute organ dysfunction Severe sepsis acute organ dysfunction type: unspecified Severe sepsis shock status: without septic shock Qualified Code(s): A41.9 - Sepsis, unspecified organism; R65.20 - Severe sepsis without septic shock Is this a current diagnosis for this admission?: Yes Plan: Admitted with fever, hyperbilirubinemia, pancytopenia, bandemia tachycardia. Chest x-ray and UA negative on admission. Appeared to have a viral syndrome/infection on admisison. COVID-19 test negative. So far only likely source seems to be a possible coagulase staph bacteremia. Treatment as above. (5) Oral thrush Is this a current diagnosis for this admission?: Yes Plan: We will change from IV to p.o. fluconazole today. Day 11/11. (6) Hyponatremia Is this a current diagnosis for this admission?: Yes Plan: Responding nicely to Lasix. Continue to monitor BMP. (7) Hyperbilirubinemia Is this a current diagnosis for this admission?: Yes Plan: Abdominal ultrasound shows no evidence of cirrhosis or biliary obstruction. Possible mild fatty liver disease. Bilirubin has normalized now. - Time Time Spent with patient: 15-24 minutes
[2019-11-23] MEDS: CALCIUM CARBONATE 600 MG TABLET PO SCH ×2 (10:52→18:24)
[2019-11-23] MEDS: POTASSIUM CHLORIDE 10 MEQ TABLET.ER PO SCH (10:52)
[2019-11-23] MEDS: METOPROLOL SUCCINATE 50 MG TAB.SR.24H PO SCH ×2 (10:53→21:28)
[2019-11-23] MEDS: ASPIRIN 81 MG TABLET, ENT COATED PO SCH (10:53)
[2019-11-23] MEDS: BACITRACIN ZINC OINTMENT 15 GM TP SCH (10:53)
[2019-11-23] MEDS: MAGNESIUM OXIDE 400 MG TABLET PO SCH (10:53)
[2019-11-23] MEDS: FUROSEMIDE INJ/PF 40 MG/4 ML SDV IV SCH ×2 (10:53→18:24)
[2019-11-23] MEDS: NICOTINE 14 MG/24 HR PATCH.TD24 TD SCH (10:53)
--- NOTE | 2019-11-23 11:06 | PDOC CONSULTATION ---
Consultation Consult Date: 11/23/19 Attending physician:: NOMAN COBB Provider Consulted: EVA BOWEN Consult reason:: Abnormal ekg History of Present Illness Admission Date/PCP: 11/19/19 11:09 ROSENDO BAJWA PA-C History of Present Illness: ARMIDA COLEMAN is a 38 year old female with history of bipolar disorder, diabetes mellitus type 2, asthma, oral thrush, cigarrette smoker of 1PPD since age 13 years old who was admitted to our facility on NOVEMBER 17 with complaints of vomiting for the past several days as well as significant fatigue and some shortness of breath on occasion and who is consulted to our service for evaluation of elevated troponin. On admission she was found to have features of sepsis in the setting of pacytopenia. This morning she is sleeping and without cardiac complaints. She specifically denies chest pain, shortness of breath, LE edema, LOPEZ, palpitations. She also denied the use of drugs as well as family history of premature CAD. Physical exam on 11/23/2019: GENERAL: Sleeping but aeousable. Oriented x3. Not in acute distress. Disheveled. HEENT: Normocephalic, atraumatic. Pupils equal. Sclerae anicteric. Oropharynx moist. NECK: No JVD. No carotid bruits. LUNGS: Faint bibasilar crackles and wheezing. Normal respiratory effort without the use of accessory muscles or intercostal retractions. CARDIOVASCULAR: Mildly tachycardic. Regular rate and rhythm, normal S1 and S2 without murmurs, rubs, or gallops. PMI not displaced. EXTREMITIES: Trace pitting edema bilaterally, no cyanosis, no clubbing. +2 pul ses femoral and pedal pulses bilaterally. SKIN: No lesions or rashes. MUSCULOSKELETAL: No chest tenderness to palpation. NEUROLOGIC: Nonfocal. No gross sensory or motor deficits bilateral upper or lower extremities. Past Medical History Pulmonary Medical History: Reports: Asthma Endocrine Medical History: Reports: Diabetes Mellitus Type 2 Psychiatric Medical History: Reports: Bipolar Disorder, Depression Past Surgical History Past Surgical History: Reports: Tonsillectomy, Tubal Ligation Social History Smoking Status: Current Every Day Smoker Frequency of Alcohol Use: None Hx Recreational Drug Use: No - She denies any history of drug use including IV drugs - Advance Directive Resuscitation Status: Full Code Family History Family History: Other - Patient states none Parental Family History Reviewed: Yes Children Family History Reviewed: Yes Sibling(s) Family History Reviewed.: Yes Medication/Allergy Home Medications: Glipizide [Glocotrol 5 Mg Tablet] 5 mg PO BID 11/19/19 Meclizine HCl [Motion Relief] 25 mg PO BIDP PRN 11/19/19 Nystatin [Mycostatin 424784 Unit/1 ml Susp 60 ml Btl] 3 ml PO QID 11/19/19 Omeprazole 40 mg PO DAILY 11/19/19 Pioglitazone HCl 45 mg PO DAILY 11/19/19 Allergies/Adverse Reactions: clindamycin Allergy (Verified 11/19/19 08:58) doxycycline Allergy (Verified 11/19/19 08:58) Penicillins Allergy (Verified 11/19/19 08:58) Physical Exam Vital Signs: Temp Pulse Resp BP Pulse Ox 98.3 F 102 H 17 132/99 H 100 11/23/19 07:19 11/23/19 07:19 11/23/19 07:19 11/23/19 07:19 11/23/19 07:19 Intake & Output 11/22/19 11/23/19 11/24/19 06:59 06:59 06:59 Intake Total 1950 463 Output Total 710 1020 Balance 1240 -557 Weight 66.3 kg 66.6 kg Results Laboratory Results: 11/23/19 03:58 11/23/19 03:58 11/23/19 11/23/19 03:58 03:58 WBC 1.3 L* RBC 3.41 L Hgb 10.0 L Hct 28.6 L MCV 84 MCH 29.2 MCHC 34.9 RDW 14.2 H Plt Count 20 L* Seg Neutrophils % Not Reportable Sodium 130.2 L Potassium 4.2 Chloride 98 Carbon Dioxide 29 Anion Gap 3 L BUN 7 Creatinine 0.44 L Est GFR ( Amer) > 60 Glucose 103 Calcium 8.5 Magnesium 1.9 11/19/19 08:50 Blood Blood Culture (PCR) - Final Staphylococcus Species 11/19/19 08:50 Blood Blood Culture - Final Staphylococcus Epidermidis 11/19/19 11:15 Blood Blood Culture (PCR) - Final Staphylococcus Species 11/19/19 11:15 Blood Blood Culture - Final Staphylococcus Epidermidis 11/19/19 11/19/19 11/21/19 08:08 08:08 13:03 Creatine Kinase 102 53 CK-MB (CK-2) Troponin I < 0.012 NT-Pro-B Natriuret Pep 11/21/19 11/21/19 11/21/19 14:30 17:20 17:20 Creatine Kinase CK-MB (CK-2) 0.45 0.44 Troponin I 0.260 0.225 NT-Pro-B Natriuret Pep 11/21/19 11/21/19 11/22/19 19:30 19:30 05:25 Creatine Kinase 48 CK-MB (CK-2) 0.34 Troponin I 0.207 0.130 NT-Pro-B Natriuret Pep 73192 H 11/23/19 03:58 Creatine Kinase CK-MB (CK-2) Troponin I 0.050 NT-Pro-B Natriuret Pep Impressions: Abdomen Ultrasound 11/19/19 00:00 IMPRESSION: 1. Cholelithiasis. 2. The liver is enlarged and difficult to image suggesting fatty infiltration. Portal vein is patent with hepatopedal flow. No ultrasound evidence of cirrhosis. Abdomen/Pelvis CT 11/20/19 00:00 IMPRESSION: Moderate free fluid the pelvis. No other significant findings in the abdomen or pelvis. Free fluid the pelvis is nonspecific. Chest/Abdomen CTA 11/22/19 00:00 IMPRESSION: 1. NORMAL CTA OF THE CHEST. NO PULMONARY EMBOLI. 2. PATCHY GROUND-GLASS OPACITIES PRIMARILY IN THE LEFT LUNG. NONSPECIFIC. CONCERNING FOR MULTIFOCAL INFECTION. Chest X-Ray 11/23/19 00:00 IMPRESSION: The cardiomediastinal silhouette appears larger than it did on prior. This may be projectional. There is progressive interstitial prominence with subtle associated superimposed patchy alveolar space disease. This is adverse change. 11/23/19 03:58 11/23/19 03:58 MCV 84 fl (80-97) 11/23/19 03:58 MCH 29.2 pg (27.0-33.4) 11/23/19 03:58 MCHC 34.9 g/dL (32.0-36.0) 11/23/19 03:58 RDW 14.2 % (11.5-14.0) H 11/23/19 03:58 Seg Neutrophils % Not Reportable 11/23/19 03:58 Retic Count (auto) 1.37 % (0.66-2.85) 11/19/19 15:34 Chloride 98 mmol/L (98-107) 11/23/19 03:58 Carbon Dioxide 29 mmol/L (22-30) 11/23/19 03:58 Anion Gap 3 (5-19) L 11/23/19 03:58 Est GFR ( Amer) > 60 (>60) 11/23/19 03:58 Glucose 103 mg/dL (75-110) 11/23/19 03:58 Serum Osmolality 269 mOsm/kg (275-301) L 11/19/19 19:34 Lactic Acid 1.6 mmol/L (0.7-2.1) 11/19/19 18:39 Calcium 8.5 mg/dL (8.4-10.2) 11/23/19 03:58 Phosphorus 2.9 mg/dL (2.5-4.5) 11/21/19 05:06 Magnesium 1.9 mg/dL (1.6-2.3) 11/23/19 03:58 Iron 57.1 ug/dL (37-170) 11/19/19 15:34 TIBC 183 ug/dL (250-450) L 11/19/19 15:34 % Saturation 31 % 11/19/19 15:34 Transferrin 108.10 mg/dL (206.00-381.00) L 11/19/19 15:34 Ferritin > 72009.00 ng/mL (6.2-137.0) H 11/19/19 19:34 Total Bilirubin 0.7 mg/dL (0.2-1.3) 11/22/19 05:25 AST 108 U/L (14-36) H 11/22/19 05:25 Alkaline Phosphatase 134 U/L (38-126) H 11/22/19 05:25 C-Reactive Protein 86.6 mg/L (<10.0) H 11/22/19 05:25 Total Protein 5.2 g/dL (6.3-8.2) L 11/22/19 05:25 Albumin 2.3 g/dL (3.5-5.0) L 11/22/19 05:25 Triglycerides 135 mg/dL (<150) 11/20/19 06:18 Cholesterol 84.95 mg/dL (0-200) 11/20/19 06:18 LDL Cholesterol Direct 42 mg/dL (<100) 11/20/19 06:18 VLDL Cholesterol 27.0 mg/dL (10-31) 11/20/19 06:18 HDL Cholesterol 22 mg/dL (>40) L 11/20/19 06:18 Vitamin B12 384.0 pg/mL (239-931) 11/19/19 15:34 Folate 4.55 ng/mL (>2.76) 11/19/19 15:34 TSH 0.97 uIU/mL (0.47-4.68) 11/19/19 15:34 Free T4 1.77 ng/dL (0.78-2.19) 11/19/19 15:34 Free T3 pg/mL 4.13 pg/mL (2.77-5.27) 11/19/19 15:34 PTH Intact 31.1 pg/mL (10.0-65.0) 11/20/19 12:00 Urine Color DARK YELLOW 11/19/19 09:35 Urine Appearance HAZY 11/19/19 09:35 Urine pH 6.0 (5.0-9.0) 11/19/19 09:35 Ur Specific [place] 1.023 11/19/19 09:35 Urine Protein 100 mg/dL (NEGATIVE) H 11/19/19 09:35 Urine Glucose (UA) 50 mg/dL (NEGATIVE) H 11/19/19 09:35 Urine Ketones 25 mg/dL (NEGATIVE) H 11/19/19 09:35 Urine Blood SMALL (NEGATIVE) H 11/19/19 09:35 Urine Nitrite NEGATIVE (NEGATIVE) 11/19/19 09:35 Ur Leukocyte Esterase TRACE (NEGATIVE) H 11/19/19 09:35 Ur Squamous Epith Cells FEW /HPF 11/19/19 09:35 Urine Osmolality 404 mOsm/kg (300-900) 11/20/19 03:00 11/19/19 08:50 Blood Blood Culture (PCR) - Final Staphylococcus Species 11/19/19 08:50 Blood Blood Culture - Final Staphylococcus Epidermidis 11/19/19 11:15 Blood Blood Culture (PCR) - Final Staphylococcus Species 11/19/19 11:15 Blood Blood Culture - Final Staphylococcus Epidermidis 11/19/19 11/19/19 11/21/19 08:08 08:08 13:03 Creatine Kinase 102 53 CK-MB (CK-2) Troponin I < 0.012 NT-Pro-B Natriuret Pep 11/21/19 11/21/19 11/21/19 14:30 17:20 17:20 Creatine Kinase CK-MB (CK-2) 0.45 0.44 Troponin I 0.260 0.225 NT-Pro-B Natriuret Pep 11/21/19 11/21/19 11/22/19 19:30 19:30 05:25 Creatine Kinase 48 CK-MB (CK-2) 0.34 Troponin I 0.207 0.130 NT-Pro-B Natriuret Pep 60564 H 11/23/19 03:58 Creatine Kinase CK-MB (CK-2) Troponin I 0.050 NT-Pro-B Natriuret Pep Current Medication List Generic Name Dose Route Start Last Admin Trade Name Freq PRN Reason Stop Dose Admin Acetaminophen 650 mg 11/19/19 14:00 11/22/19 12:02 Tylenol 325 Mg Tablet PO 12/19/19 13:59 650 mg Q4HP PRN Administration FOR PAIN OR TEMP Albuterol/Ipratropium 3 ml 11/19/19 14:00 11/20/19 15:55 Duoneb 3 Ml Ampul NEB 12/19/19 13:59 3 ml [id number] PRN Administration SHORTNESS OF BREATH Aspirin 81 mg 11/23/19 10:00 Ecotrin 81 Mg Ec Tablet PO 12/23/19 09:59 DAILY JATIN Bacitracin 1 applic 11/23/19 10:00 Bacitracin Oint 15 Gm TP 11/30/19 09:59 DAILY AJTIN Calcium Carbonate 1,200 mg 11/20/19 10:00 11/22/19 17:05 Caltrate 600 Mg Tablet PO 12/20/19 09:59 1,200 mg BID JATIN Administration Dextrose 12.5 gm 11/19/19 14:17 Dextrose Inj 50% Syringe (25 Gm/50 Ml) IV 12/19/19 14:16 PRN PRN FOR BG 50-69 IN ALERT PATIENT Protocol Dextrose 25 gm 11/19/19 14:17 Dextrose Inj 50% Syringe (25 Gm/50 Ml) IV 12/19/19 14:16 PRN PRN PER PROTOCOL Protocol Furosemide 40 mg 11/23/19 10:00 Lasix Inj/Pf 40 Mg/4 Ml Sdv IV 12/23/19 09:59 BID JATIN Glucagon 1 mg 11/19/19 14:17 Glucagen Inj 1 Mg Vial IM 12/19/19 14:16 PRN PRN Evaluate for BG < 70 Protocol Glucose 15 gm 11/19/19 14:17 Glutose 40% Gel 15 Gm Tube PO 12/19/19 14:16 PRN PRN FOR BG 50-69 IN ALERT PATIENT Protocol Glucose 30 gm 11/19/19 14:17 Glutose 40% Gel 15 Gm Tube PO 12/19/19 14:16 PRN PRN FOR BG < 50 IN ALERT PATIENT Protocol Fluconazole/Sodium Chloride 200 mg in 100 mls @ 100 mls/hr 11/19/19 15:00 11/22/19 14:15 Diflucan Rtu 200 Mg/Ns 100 Ml Premix IV 11/26/19 14:59 200 mls/hr NOON JATIN 200 mls/hr Administration Vancomycin HCl 1,250 mg/ 250 mls @ 166.667 mls/hr 11/21/19 02:00 11/23/19 02:09 Dextrose IV 11/28/19 01:59 166 mls/hr Q8A JATIN 166 mls/hr Administration Insulin Human Lispro 0 - 12 unit 11/19/19 16:00 11/22/19 23:58 Humalog Insulin 100 Unit/1 Ml 3 Ml Vial SUBCUT 12/19/19 15:59 Not Given ACHS [facility] Protocol Losartan Potassium 12.5 mg 11/23/19 10:00 Cozaar 25 Mg Tablet PO 12/23/19 09:59 DAILY [facility] Magnesium Oxide 400 mg 11/23/19 10:00 Mag-Ox 400 Mg Tablet PO 12/23/19 09:59 DAILY [facility] Metoprolol Succinate 50 mg 11/22/19 22:00 11/22/19 23:58 Toprol Xl 50 Mg Tab.Sr PO 12/22/19 21:59 50 mg Q12 JATIN Administration Metoprolol Tartrate 5 mg 11/21/19 13:19 11/21/19 20:22 Lopressor Inj/Pf 5 Mg/5 Ml Sdv IV 12/21/19 13:18 5 mg Q6HP PRN Administration GIVE FOR HR > [] Nicotine 1 each 11/21/19 13:30 11/22/19 10:01 Nicoderm 14 Mg/24 Hr Transdermal Patch TD 12/21/19 13:29 1 each DAILY JATIN Administration Ondansetron HCl 4 mg 11/19/19 14:05 11/22/19 08:43 Zofran Inj/Pf 4 Mg/2 Ml Sdv IV 12/19/19 14:04 4 mg Q6HP PRN Administration FOR NAUSEA/VOMITING Potassium Chloride 40 meq 11/21/19 10:00 11/22/19 10:01 Klor-Con 10 Meq Tablet Er PO 12/21/19 09:59 40 meq DAILY JATIN Administration Promethazine HCl 12.5 mg 11/19/19 14:05 11/23/19 00:14 Phenergan Inj 25 Mg/1 Ml Vial IV 12/19/19 14:04 12.5 mg Q4HP PRN Administration UNRESOLVED NAUSEA/VOMITING Discontinued Medications Generic Name Dose Route Start Last Admin Trade Name Freq PRN Reason Stop Dose Admin Acetaminophen 975 mg 11/19/19 10:19 11/19/19 10:35 Tylenol 325 Mg Tablet PO 11/19/19 10:20 975 mg NOW ONE Administration Albuterol/Ipratropium 3 ml 11/19/19 08:17 11/19/19 08:52 Duoneb 3 Ml Ampul NEB 11/19/19 08:18 3 ml NOW ONE Administration Furosemide 40 mg 11/22/19 08:30 11/22/19 09:58 Lasix Inj/Pf 40 Mg/4 Ml Sdv IV 12/22/19 08:29 Not Given DAILY JATIN Sodium Chloride 1,000 mls @ 0 mls/hr 11/19/19 08:17 11/19/19 10:32 Nacl 0.9% 1000 Ml Iv Soln IV 11/19/19 08:18 Infused BOLUS ONE Infusion Wide Open Lactated Ringer's 1,000 mls @ 0 mls/hr 11/19/19 09:02 11/19/19 12:23 Lactated Ringers 1000 Ml Iv Soln IV 11/19/19 09:03 Infused BOLUS ONE Infusion Wide Open Sodium Chloride 1,000 mls @ 0 mls/hr 11/19/19 10:37 11/19/19 14:18 Nacl 0.9% 1000 Ml Iv Soln IV 11/19/19 10:38 Infused BOLUS ONE Infusion Wide Open Potassium Chloride/Water 20 meq in 50 mls @ 25 mls/hr 11/19/19 10:37 11/19/19 13:20 Potassium Chloride Rey 20 Meq/50 Ml IV 11/19/19 12:36 Infused NOW ONE Infusion Cefepime HCl 1 gm in 50 mls @ 100 mls/hr 11/19/19 10:41 11/19/19 11:29 Maxipime Rtu 1 Gm/D5w 50 Ml Premix Bag IV 11/19/19 11:10 Infused NOW ONE Infusion Sodium Chloride 1,000 mls @ 120 mls/hr 11/19/19 14:00 Nacl 0.9% 1000 Ml Iv Soln IV 12/19/19 13:59 CONTINUOUS PRN THIS MED IS NOT "PRN" Cefepime HCl 2 gm in 50 mls @ 100 mls/hr 11/19/19 22:00 11/20/19 00:41 Maxipime Rtu 2 Gm-D5w 50 Ml Premix Bag IV 11/26/19 21:59 Infused Q12 JATIN Infusion Vancomycin HCl 1,000 mg/ 250 mls @ 166.667 mls/hr 11/19/19 15:00 Dextrose IV 11/26/19 14:59 Q8 JATIN Potassium Chloride/Water 20 meq in 50 mls @ 25 mls/hr 11/19/19 17:00 11/20/19 03:00 Potassium Chloride Rey 20 Meq/50 Ml IV 11/19/19 22:59 Infused Q2H JATIN Infusion Vancomycin HCl 1,000 mg/ 250 mls @ 166.667 mls/hr 11/19/19 18:30 11/20/19 18:06 Dextrose IV 11/26/19 18:29 166.67 mls/hr Q8A JATIN 166.67 mls/hr Administration Cefepime HCl Confirm 11/20/19 00:03 11/20/19 00:23 Maxipime Rtu 2 Gm-D5w 50 Ml Premix Bag Administered 11/20/19 00:04 Not Given Dose 2 gm in 50 mls @ ud IV .STK-MED ONE Cefepime HCl 2 gm/ Dextrose 50 mls @ 100 mls/hr 11/21/19 10:00 11/22/19 11:20 IV 11/27/19 09:59 Infused Q12 JATIN Infusion Cefepime HCl 2 gm/ Sodium 50 mls @ 100 mls/hr 11/20/19 10:00 11/20/19 21:59 Chloride IV 11/20/19 22:29 100 mls/hr Q12 JATIN 100 mls/hr Administration Sodium Chloride 1,000 mls @ 120 mls/hr 11/20/19 07:38 11/22/19 07:09 Nacl 0.9% 1000 Ml Iv Soln IV 12/20/19 07:37 120 mls/hr CONTINUOUS PRN Administration THIS MED IS NOT "PRN" Sodium Chloride 1,000 mls @ 0 mls/hr 11/20/19 12:45 11/20/19 13:23 Nacl 0.9% 1000 Ml Iv Soln IV 11/20/19 12:46 999 mls/hr BOLUS ONE Administration Wide Open Sodium Chloride 1,000 mls @ 0 mls/hr 11/21/19 09:00 11/21/19 09:20 Nacl 0.9% 1000 Ml Iv Soln IV 11/21/19 09:01 999 mls/hr BOLUS ONE Administration Wide Open Metoprolol Tartrate 50 mg 11/21/19 14:00 11/22/19 14:15 Lopressor 50 Mg Tablet PO 12/21/19 13:59 50 mg TID JATIN Administration Ondansetron HCl 4 mg 11/19/19 09:28 11/19/19 09:37 Zofran Inj/Pf 4 Mg/2 Ml Sdv IV 11/19/19 09:29 4 mg NOW ONE Administration Potassium Chloride 40 meq 11/19/19 16:55 11/19/19 17:47 Klor-Con 10 Meq Tablet Er PO 11/19/19 16:56 40 meq NOW ONE Administration Potassium Phosphate 500 mg 11/20/19 12:45 11/20/19 13:26 K-Phos Neutral 250 Mg Tablet PO 11/20/19 12:46 500 mg NOW ONE Administration Sodium Chloride 1 gm 11/21/19 14:30 11/22/19 10:07 Sodium Chloride 1 Gm Tablet PO 12/21/19 14:29 1 gm Q12 JATIN Administration Vancomycin HCl Confirm 11/21/19 02:21 11/21/19 02:41 Vancocin Inj 500 Mg Vial Administered 11/21/19 02:22 Not Given Dose 500 mg .ROUTE .STK-MED ONE Assessment & Plan - Diagnosis (1) Cardiomyopathy Qualifiers: Cardiomyopathy type: unspecified Qualified Code(s): I42.9 - Cardiomyopathy, unspecified Plan: 38y/o female without known cardiac history admitted with several days of abdominal discomfort and sepsis features and found to have mildly elevated cardiac troponins (now downtrending), elevated proBNP and new onset cardiomyopathy with an ejection fraction around 30-35% with anterobasal and inferobasal hypokinesis. The patient does not have a cardiac history and has never had a cardiovascular event. She denies angina and angina equivalents prior admission however she did have an episode of chest pain last night associated with shortness of breath and new T wave inversions on ekg. Whether her cardiovascular presentation is secondary to an underlying infection vs early sepsis vs myopericarditis vs true coronary event it is unclear at this time. It is concerning that she did have chest pain last night with new T wave inversions as well as worsening of her CXR. Given our limited cardiac capabilities at [facility], I recommend transferring the patient to [facility]. RECOMMENDATIONS: -Continue with current management for now. -Transfer to [facility].
[2019-11-23] MEDS: NICOTINE 21 MG/24 HR PATCH.TD24 TD SCH (11:51)
[2019-11-23] MEDS: FLUCONAZOLE 100 MG TABLET PO SCH (12:02)
[2019-11-23] MEDS: SACUBITRIL/VALSARTAN 24 MG/26 MG TABLET PO SCH ×2 (12:02→21:28)
[2019-11-23] MEDS ORDERED: METOPROLOL SUCCINATE 25 MG TAB.SR.24H PO ONE (16:44)
[2019-11-24] MEDS: VANCOMYCIN HCL 1,250 MG in DEXTROSE 5%-WATER 250 ML IV SCH ×2 (01:35→09:19)
[2019-11-24 06:43] LABS: ANION GAP 6 (5-19); BLOOD UREA NITROGEN 6 mg/dL (7-20); CALCIUM 8.5 mg/dL (8.4-10.2); CARBON DIOXIDE 30 mmol/L (22-30); CHLORIDE 92 mmol/L (98-107); GLUCOSE 142 mg/dL (75-110); POTASSIUM 4.1 mmol/L (3.6-5.0)
[2019-11-24 07:01] LABS: ABSOLUTE LYMPHOCYTES (AUTO) 0.1 10^3/uL (0.5-4.7); ABSOLUTE MONOCYTES (AUTO) 0.1 10^3/uL (0.1-1.4); ABSOLUTE NEUT (AUTO) 0.9 10^3/uL (1.7-8.2); EOSINOPHILS % (AUTO) 2.7 % (0-6); HEMATOCRIT 31.8 % (36.0-47.0); HEMOGLOBIN 11.2 g/dL (12.0-15.5); LYMPHOCYTES % (AUTO) 5.7 % (13-45); MEAN CORPUSCULAR HEMOGLOBIN 29.2 pg (27.0-33.4); MEAN CORPUSCULAR HGB CONC 35.2 g/dL (32.0-36.0); MEAN CORPUSCULAR VOLUME 83 fl (80-97); MONOCYTES % (AUTO) 5.9 % (3-13); RED BLOOD COUNT 3.84 10^6/uL (3.72-5.28); RED CELL DISTRIBUTION WIDTH 14.7 % (11.5-14.0); SEGMENTED NEUTROPHILS % (AUTO) 84.7 % (42-78); TOTAL CELLS COUNTED % (AUTO) 100 %
[2019-11-24 07:11] LABS: PLATELET COUNT 23 10^3/uL (150-450); POLYCHROMASIA SLIGHT
[2019-11-24 07:12] LABS: ANISOCYTOSIS SLIGHT; OVALOCYTES SLIGHT; PLATELET COMMENT DECREASED; TEAR DROP CELLS SLIGHT
--- NOTE | 2019-11-24 08:06 | PDOC PROGRESS REPORT ---
Subjective Progress Note for:: 11/24/19 Subjective:: Patient states that she is feeling much better and she is anxious to go home. Her nausea has improved. She is able to get to the bathroom on her own. She is able to eat and drink some. She denies any bleeding. Reason For Visit: FEVER, PANCYTOPENIA Physical Exam Vital Signs: Temp Pulse Resp BP Pulse Ox 97.6 F 99 28 H 98/67 L 100 11/24/19 03:06 11/24/19 03:06 11/24/19 03:06 11/24/19 03:06 11/24/19 03:06 Intake & Output 11/23/19 11/24/19 11/25/19 06:59 06:59 06:59 Intake Total 463 1086 Output Total 1020 Balance -557 1086 Weight 66.6 kg 65.5 kg General appearance: PRESENT: no acute distress, well-developed, well-nourished Exam: Her temperature is now back to normal. Head exam: PRESENT: atraumatic, normocephalic Mouth exam: PRESENT: other - Thrush has improved. Respiratory exam: PRESENT: unlabored Neurological exam: PRESENT: alert, awake Psychiatric exam: PRESENT: appropriate affect Results Laboratory Results: 11/24/19 05:10 11/24/19 05:10 11/24/19 11/24/19 05:10 05:10 WBC 1.0 L* RBC 3.84 Hgb 11.2 L Hct 31.8 L MCV 83 MCH 29.2 MCHC 35.2 RDW 14.7 H Plt Count 23 L* Seg Neutrophils % 84.7 H Sodium 128.4 L Potassium 4.1 Chloride 92 L Carbon Dioxide 30 Anion Gap 6 BUN 6 L Creatinine 0.39 L Est GFR ( Amer) > 60 Glucose 142 H Calcium 8.5 Magnesium 2.0 11/19/19 11/19/19 11/21/19 08:08 08:08 13:03 Creatine Kinase 102 53 CK-MB (CK-2) Troponin I < 0.012 NT-Pro-B Natriuret Pep 11/21/19 11/21/19 11/21/19 14:30 17:20 17:20 Creatine Kinase CK-MB (CK-2) 0.45 0.44 Troponin I 0.260 0.225 NT-Pro-B Natriuret Pep 11/21/19 11/21/19 11/22/19 19:30 19:30 05:25 Creatine Kinase 48 CK-MB (CK-2) 0.34 Troponin I 0.207 0.130 NT-Pro-B Natriuret Pep [id number] H 11/23/19 03:58 Creatine Kinase CK-MB (CK-2) Troponin I 0.050 NT-Pro-B Natriuret Pep Impressions: Abdomen Ultrasound 11/19/19 00:00 IMPRESSION: 1. Cholelithiasis. 2. The liver is enlarged and difficult to image suggesting fatty infiltration. Portal vein is patent with hepatopedal flow. No ultrasound evidence of cirrhosis. Abdomen/Pelvis CT 11/20/19 00:00 IMPRESSION: Moderate free fluid the pelvis. No other significant findings in the abdomen or pelvis. Free fluid the pelvis is nonspecific. Chest/Abdomen CTA 11/22/19 00:00 IMPRESSION: 1. NORMAL CTA OF THE CHEST. NO PULMONARY EMBOLI. 2. PATCHY GROUND-GLASS OPACITIES PRIMARILY IN THE LEFT LUNG. NONSPECIFIC. CONCERNING FOR MULTIFOCAL INFECTION. Chest X-Ray 11/23/19 00:00 IMPRESSION: The cardiomediastinal silhouette appears larger than it did on prior. This may be projectional. There is progressive interstitial prominence with subtle associated superimposed patchy alveolar space disease. This is adverse change. Assessment & Plan - Diagnosis (1) Oral thrush Is this a current diagnosis for this admission?: Yes Plan: resolving with diflucan. (2) Pancytopenia Is this a current diagnosis for this admission?: Yes Plan: WBC and PLT have continued to decrease. Her HGB has been stable. Transfuse platelets if any signs of bleeding. I am still awaiting HIV results. If these are negative, then she will need a bone marrow biopsy. However, if these are positive, then treatment for HIV should greatly improve all blood counts. - Time Time Spent with patient: Less than 15 minutes - Plan Summary Plan Summary: Please call with any concerns.
[2019-11-24 08:17] VITALS: BP 108/71
[2019-11-24] MEDS: INSULIN LISPRO 100 UNIT/ML 3 ML VIAL SUBCUT SCH ×2 (08:18→12:22)
[2019-11-24] MEDS: CALCIUM CARBONATE 600 MG TABLET PO SCH (09:18)
[2019-11-24] MEDS: MAGNESIUM OXIDE 400 MG TABLET PO SCH (09:18)
[2019-11-24] MEDS: SACUBITRIL/VALSARTAN 24 MG/26 MG TABLET PO SCH (09:18)
[2019-11-24] MEDS: ASPIRIN 81 MG TABLET, ENT COATED PO SCH (09:18)
[2019-11-24] MEDS: METOPROLOL SUCCINATE 50 MG TAB.SR.24H PO SCH (09:18)
[2019-11-24] MEDS: POTASSIUM CHLORIDE 10 MEQ TABLET.ER PO SCH (09:18)
[2019-11-24] MEDS: BACITRACIN ZINC OINTMENT 15 GM TP SCH (09:19)
[2019-11-24] MEDS: NICOTINE 21 MG/24 HR PATCH.TD24 TD SCH (09:20)
[2019-11-24] MEDS ORDERED: FUROSEMIDE 20 MG TABLET PO SCH (10:00)
--- NOTE | 2019-11-24 12:56 | PDOC PROGRESS REPORT ---
Subjective Progress Note for:: 11/24/19 Subjective:: Patient is in bed. Reports no complaints. Reason For Visit: FEVER, PANCYTOPENIA Physical Exam Vital Signs: Temp Pulse Resp BP Pulse Ox 98.1 F 101 H 22 H 108/71 99 11/24/19 07:10 11/24/19 07:10 11/24/19 07:10 11/24/19 07:10 11/24/19 07:10 Intake & Output 11/23/19 11/24/19 11/25/19 06:59 06:59 06:59 Intake Total 463 1086 500 Output Total 1020 Balance -557 1086 500 Weight 66.6 kg 65.5 kg General appearance: PRESENT: no acute distress, cooperative, well-developed, well-nourished Head exam: PRESENT: atraumatic, normocephalic Eye exam: PRESENT: conjunctiva pale Mouth exam: PRESENT: dry mucosa Respiratory exam: PRESENT: clear to auscultation stas, decreased breath sounds, prolonged expiratory phas, unlabored Cardiovascular exam: PRESENT: RRR, +S1, +S2 Pulses: PRESENT: normal radial pulses GI/Abdominal exam: PRESENT: soft Rectal exam: PRESENT: deferred Neurological exam: PRESENT: alert, awake, oriented to person, oriented to place, oriented to time, oriented to situation Skin exam: PRESENT: dry, intact Results Laboratory Results: 11/24/19 05:10 11/24/19 05:10 11/24/19 11/24/19 05:10 05:10 WBC 1.0 L* RBC 3.84 Hgb 11.2 L Hct 31.8 L MCV 83 MCH 29.2 MCHC 35.2 RDW 14.7 H Plt Count 23 L* Seg Neutrophils % 84.7 H Sodium 128.4 L Potassium 4.1 Chloride 92 L Carbon Dioxide 30 Anion Gap 6 BUN 6 L Creatinine 0.39 L Est GFR ( Amer) > 60 Glucose 142 H Calcium 8.5 Magnesium 2.0 11/21/19 09:40 Blood Blood Culture - Final Staphylococcus Epidermidis 11/19/19 11/19/19 11/21/19 08:08 08:08 13:03 Creatine Kinase 102 53 CK-MB (CK-2) Troponin I < 0.012 NT-Pro-B Natriuret Pep 11/21/19 11/21/19 11/21/19 14:30 17:20 17:20 Creatine Kinase CK-MB (CK-2) 0.45 0.44 Troponin I 0.260 0.225 NT-Pro-B Natriuret Pep 11/21/19 11/21/19 11/22/19 19:30 19:30 05:25 Creatine Kinase 48 CK-MB (CK-2) 0.34 Troponin I 0.207 0.130 NT-Pro-B Natriuret Pep [id number] H 11/23/19 03:58 Creatine Kinase CK-MB (CK-2) Troponin I 0.050 NT-Pro-B Natriuret Pep EKG Comments: Twelve-lead EKG. 11/23/2019 Independently viewed by me. Sinus tachycardia 105 bpm, lateral T wave inversion., Normal AV conduction, QTC is 482 ms Transthoracic echocardiogram 11/22/2019 Left ventricular ejection fraction 30 to 35%. Small pericardial effusion without hemodynamic significance reported. Impressions: Abdomen Ultrasound 11/19/19 00:00 IMPRESSION: 1. Cholelithiasis. 2. The liver is enlarged and difficult to image suggesting fatty infiltration. Portal vein is patent with hepatopedal flow. No ultrasound evidence of cirrhosis. Abdomen/Pelvis CT 11/20/19 00:00 IMPRESSION: Moderate free fluid the pelvis. No other significant findings in the abdomen or pelvis. Free fluid the pelvis is nonspecific. Chest/Abdomen CTA 11/22/19 00:00 IMPRESSION: 1. NORMAL CTA OF THE CHEST. NO PULMONARY EMBOLI. 2. PATCHY GROUND-GLASS OPACITIES PRIMARILY IN THE LEFT LUNG. NONSPECIFIC. CONC ERNING FOR MULTIFOCAL INFECTION. Chest X-Ray 11/23/19 00:00 IMPRESSION: The cardiomediastinal silhouette appears larger than it did on prior. This may be projectional. There is progressive interstitial prominence with subtle associated superimposed patchy alveolar space disease. This is adverse change. Assessment & Plan - Diagnosis (1) Febrile neutropenia Is this a current diagnosis for this admission?: Yes Plan: Patient is being followed by hematology Pancytopenia being worked up Possibility of viral illness being considered. (2) Heart failure with reduced ejection fraction due to cardiomyopathy Is this a current diagnosis for this admission?: Yes Plan: Patient appears to be compensated in terms of LV dysfunction. She is not volume overloaded. New diagnosis of LV dysfunction. Ongoing infection for probable viral infection as a possibility for cause of pancytopenia It is conceivable that such viral infection has also caused cardiomyopathy. However given risk factors for coronary artery disease myocardial ischemia or ischemic etiology has also to be excluded. Would recommend guideline directed medical therapy for dilated cardiomyopathy Continue Entresto Continue metoprolol Ischemic evaluation later
[2019-11-24] MEDS: FLUCONAZOLE 100 MG TABLET PO SCH (13:00)
[2019-11-24 13:31] LABS: PATH REVIEW PATHOLOGIST REVIEWED
--- NOTE | 2019-11-24 15:59 | Left Against Medical Advice ---
Against Medical Advice Admission Date/Time: 11/19/19 11:09 Primary Care Provider: ROSENDO BAJWA PA-C Date of Patient Emigration: 11/24/19 - Diagnosis: (1) Pancytopenia Is this a current diagnosis for this admission?: Yes (2) Heart failure with reduced ejection fraction due to cardiomyopathy Is this a current diagnosis for this admission?: Yes (3) Coagulase negative Staphylococcus bacteremia Is this a current diagnosis for this admission?: Yes (4) Sepsis Is this a current diagnosis for this admission?: Yes (5) Hyperbilirubinemia Is this a current diagnosis for this admission?: Yes (6) Hyponatremia Is this a current diagnosis for this admission?: Yes (7) Oral thrush Is this a current diagnosis for this admission?: Yes - Summary: Summary: Please see Admission and Progress Notes as well. ARMIDA COLEMAN is a 38 F, who LEFT AGAINST MEDICAL ADVICE. The Patient was admitted on 11/19/19 11:09. The patient's nurse contacted me stating the patient had wanted to leave AGAINST MEDICAL ADVICE. I did go visit the patient with the nurse. My explained the multiple pathologies that were present. I explained how she is significant risk for infection. I explained that she should be receiving antibiotics for a longer period of time. I reviewed the substantial risks to her leaving. She in fact acknowledged these risks and stated that she understands but she has to go home to take care of her child. I asked what these she was and she said that her child is out of control. Evidently no one is able to help with caring for the child. Unfortunately the patient is high risk for catastrophic event. The patient's nurse in fact called the patient's mother and transferred the call into the room to see if the patient's mother could advise her against leaving but even after that phone call the patient was adamant about leaving. With her decision and final the nurses remove the IV and the patient left AGAINST MEDICAL ADVICE. Unfortunately as sick as she is notably she will do well outside of the hospital and I would expect her to return soon.
[2019-11-25 07:17] LABS: EPSTEIN BARR NUCLEAR AG IGG AB 33.3 U/mL (0.0-17.9); EPSTEIN BARR VCA IGG AB >600.0 U/mL (0.0-17.9); EPSTEIN BARR VCA IGM AB <36.0 U/mL (0.0-35.9); PARVOVIRUS B19 IGG AB 1.9 index (0.0-0.8); PARVOVIRUS B19 IGM AB 0.4 index (0.0-0.8)
[2019-11-28 23:24] LABS: CMV DNA PCR QUANT Positive < 200 IU/mL (Negative)
[2019-11-29 11:59] LABS: RHEUMATOID FACTOR LEVELS IGA 58.3 EU/ml (.); RHEUMATOID FACTOR LEVELS IGG 32.1 EU/ml (.)
== END 2019-11-24 13:10 | disposition left against medical advice (07) | DRG 871 ==
LOC: ER 07:32 → EH 11:09 → 3W 14:33
PROVIDERS: ADMIT Internal Medicine; ATTEND Hospitalist
DX: A41.9 Sepsis, unspecified organism (principal); I50.21 Acute systolic (congestive) heart failure; D61.818 Other pancytopenia; E87.1 Hypo-osmolality and hyponatremia; I42.9 Cardiomyopathy, unspecified; B37.0 Candidal stomatitis; D69.6 Thrombocytopenia, unspecified; F31.9 Bipolar disorder, unspecified; E11.9 Type 2 diabetes mellitus without complications; J45.909 Unspecified asthma, uncomplicated; R61 Generalized hyperhidrosis; L98.9 Disorder of the skin and subcutaneous tissue, unspecified; E80.6 Other disorders of bilirubin metabolism; R11.2 Nausea with vomiting, unspecified; B95.8 Unspecified staphylococcus as the cause of diseases classified elsewhere; F17.210 Nicotine dependence, cigarettes, uncomplicated; Z79.84 Long term (current) use of oral hypoglycemic drugs; Z79.899 Other long term (current) drug therapy; Z88.3 Allergy status to other anti-infective agents; Z88.0 Allergy status to penicillin; Z20.828 Contact with and (suspected) exposure to other viral communicable diseases
CPT/HCPCS: 36415; 71045; 71275; 74177; 76705; 80048; 80053; 80061; 80074; 80202; 80307; 81001; 82306; 82550; 82553; 82607; 82728; 82746; 82962; 83010; 83036; 83540; 83550; 83605; 83615; 83735; 83880; 83930; 83935; 83970; 84100; 84439; 84443; 84466; 84481; 84484; 85025; 85045; 85379; 85384; 85610; 85652; 85730; 86038; 86140; 86225; 86431; 86664; 86665; 86701; 86702; 86704; 86706; 86747; 87040; 87077; 87150; 87186; 87491; 87496; 87521; 87591; 87635; 87798; 87804; 93005; 93010; 93306; 94640; 99291; J0692; J1450; J1815; J1940; J2405; J2550; J3370; J3480; J3490; J7030; J7060; J7120; J7620